=== PATIENT | female | born 1940 | race Caucasian/White ===

== ENCOUNTER 2020-10-01 14:19 | Emergency (ER) | payer OTHER, SELFPAY ==
--- NOTE | 2020-10-01 14:31 | DI.RAD.S_ITS ---
PROCEDURE: XR KNEE RT 3V INDICATIONS: fall with knee pain TECHNIQUE: 3 views of the knee were acquired. COMPARISON: None. FINDINGS: Bones: No fractures or dislocations. No suspicious bony lesions. Soft tissues: No joint effusion. No suspicious soft tissue calcifications. Arterial calcifications. IMPRESSION: Peripheral vascular disease. No evidence acute bony abnormality of the right knee. If clinical suspicion and/or symptoms persist, further assessment with repeat plain films, or advanced imaging (e.g., CT, MRI, or bone scan) may be helpful for further assessment. Dictated by: Ricky Chavarria M.D. on 10/01/2020 at 15:03 Approved by: Ricky Chavarria M.D. on 10/01/2020 at 15:03
--- NOTE | 2020-10-01 14:31 | DI.RAD.S_ITS ---
PROCEDURE: XR HIP W PEL IF DONE RT 2V INDICATIONS: fall 2 weeks ago with hip pain TECHNIQUE: AP pelvis with lateral view(s) of the right hip(s). COMPARISON: None. FINDINGS: Bones: No fractures or dislocations. Pelvic ring appears intact. No suspicious bony lesions. Mild bilateral hip degenerative change. Soft tissues: The visualized bowel gas pattern is normal. No suspicious soft tissue calcifications. IMPRESSION: No evidence acute bony abnormality of the pelvis and right hip. If clinical suspicion and/or symptoms persist, further assessment with repeat plain films, or advanced imaging (e.g., CT, MRI, or bone scan) may be helpful for further assessment. Dictated by: Ricky Chavarria M.D. on 10/01/2020 at 15:02 Approved by: Ricky Chavarria M.D. on 10/01/2020 at 15:03
[2020-10-01 14:35] VITALS: BP 115/80; PULSE 91; RESP 18; TEMP 36.9; O2SAT 97; BMI 23.1
--- NOTE | 2020-10-01 15:05 | ED.LOWEXIN ---
HPI - Extremity Injury (Lower) General Chief Complaint: Extremity Injury, Lower Stated Complaint: fall 2 wks ago/trouble walking/not getting better Time Seen by Provider: 10/01/20 14:25 Mode of arrival: Ambulatory Limitations: no limitations History of Present Illness HPI Narrative: 80-year-old female smoker with history of hypertension presents with family in the chief complaint of ongoing right hip and knee pain since a ground level fall 2 weeks ago. She had been walking at a rest stop and had to ambulate much further than is normal for her, she tripped and fell onto her hip and has had pain ever since. She denies any head neck or back pain. She denies any loss of consciousness, vomiting or other. She states she has increased pain with ambulation range of motion and her pain persists MD complaint: hip injury and knee injury Onset (ago): week(s) Injury: Right: hip Type of Injury: blunt Place: street/outdoors Severity: moderate Relieving factors: rest Exacerbating factors: weight bearing and palpation Context: fall and direct blow Other symptoms: none Related Data Previous Rx's Medication Instructions Recorded hydrocodone-acetaminophen 1 tab PO Q4-6H PRN #20 tab 10/01/20 Review of Systems Constitutional Constitutional: Denies chills, Denies fatigue, Denies fever(s), Denies frequent falls, Denies lethargy and Denies weakness Eyes Eyes: Denies change in vision, Denies eye discharge, Denies irritation and Denies loss of vision ENT Ears, Nose, Mouth, and Throat: Denies change in voice, Denies dizziness, Denies neck pain, Denies sore throat and Denies throat swelling Cardiovascular Cardiovascular: Denies chest pain, Denies irregular heart rhythm, Denies lightheadedness, Denies palpitations, Denies dyspnea, Denies dyspnea on exertion and Denies orthopnea Respiratory Respiratory: Denies cough, Denies dyspnea, Denies dyspnea on exertion and Denies wheezing Gastrointestinal Gastrointestinal: Denies abdominal pain, Denies change in bowel habits, Denies diarrhea, Denies nausea and Denies vomiting Musculoskeletal Musculoskeletal: Reports arthralgias, Denies neck pain and Denies numbness Integumentary/Breasts Skin/Breast: Denies pruritus, Denies erythema, Denies rash and Denies wounds Neurologic Neurologic: Denies behavioral changes, Denies confusion, Denies dizziness, Denies frequent falls, Denies loss of vision, Denies numbness and Denies weakness Psychiatric Psychiatric: Denies anxiety, Denies behavioral changes, Denies confusion, Denies depression, Denies homicidal ideation and Denies suicidal ideation Endocrine Endocrine: Denies fatigue, Denies flushing and Denies palpitations Hematologic/Lymphatic Hematologic/Lymphatic: Denies easy bruising Allergic/Immunologic Allergic/Immunologic: Denies urticaria, Denies throat swelling and Denies wheezing Patient History Social History Smoking Status: Current every day smoker Smoking Status: Current every day smoker Substance Use Type: does not use Exam Narrative Exam Narrative: GEN: AOx3 and in mild distress, GCS 15 HEAD: No swelling, abrasions, contusions, depressed skull fractures EYES: Pupils are equal, round, and reactive to light and accommodation. Extraoccular muscles are intact bilaterally. There is no subconjunctival hemorrhage or exudate. CHEST: Lungs are clear to auscultation bilaterally and free of wheezes, rales, or rhonchi. Heart rate is regular rhythm, there are no murmurs, clicks, rubs, or gallops. There is no chest wall tenderness. ABD: Abdomen is soft and nontender. There is no guarding or rebound. Bowel sounds are normal in all 4 quadrants. There is no mass or organomegaly. EXT: Full painless ROM of all extremities with no loss of sensation or strength. SKIN: Warm, pink, and dry. No erythema or rash Initial Vital Signs Initial Vital Signs: Vital Signs Temperature 98.5 F 10/01/20 14:35 Pulse Rate 91 H 10/01/20 14:35 Respiratory Rate 18 10/01/20 14:35 Blood Pressure 115/80 10/01/20 14:35 Pulse Oximetry 97 10/01/20 14:35 Course Orders Ordered: ED Orders 10/01/20 14:31 XR hip w pel if done RT 2V Stat XR knee RT 3V Stat 10/01/20 15:17 CT pelvis wo con Stat Consultations Consultation #1: Discussed with on-call Orthopedics ([place]), recommends weight-bearing as tolerated, pain control and follow-up with PCP Vital Signs Vital signs: Vital Signs - 8 hr 10/01/20 14:35 Temperature 98.5 F Pulse Rate 91 H Respiratory Rate 18 Blood Pressure 115/80 Pulse Oximetry 97 MDM - Extremity Injury (Lower) Imaging Data Xray Hip: Radiologist's Impression: [address] [id number] ReportSigned Patient: Aram Condon BMR#: [id number]: [id number]:[id number]/Sex: 80 / FDate of Service: 10/01/20Lo: EDAccession Number: [id number] Procedure: XR hip w pel if done RT 2V Ordering Provider: Jaylen Jimenez D.O. PROCEDURE: XR HIP W PEL IF DONE RT 2V INDICATIONS: fall 2 weeks ago with hip pain TECHNIQUE: AP pelvis with lateral view(s) of the right hip(s). COMPARISON: None. FINDINGS: Bones: No fractures or dislocations. Pelvic ring appears intact. No suspicious bony lesions. Mild bilateral hip degenerative change. Soft tissues: The visualized bowel gas pattern is normal. No suspicious soft tissue calcifications. IMPRESSION: No evidence acute bony abnormality of the pelvis and right hip. If clinical suspicion and/or symptoms persist, further assessment with repeat plain films, or advanced imaging (e.g., CT, MRI, or bone scan) may be helpful for further assessment. Dictated by: Ricky Chavarria M.D. on 10/01/2020 at 15:02 Approved by: Ricky Chavarria M.D. on 10/01/2020 at 15:03 CT scan - abdomen/pelvis: Radiologist's Impression: [address] [id number] Scan ReportSigned Patient: Aram Condon BMR#: [id number]: [id number]:[id number]/Sex: 80 / FDate of Service: 10/01/20Loc: EDAccession Number: [id number] Procedure: CT pelvis wo con Ordering Provider: Jaylen Jimenez D.O. PROCEDURE: CT PEL WO CON INDICATIONS: fall with R hip pain TECHNIQUE: Noncontrast 3 mm axial sections acquired through the bony pelvis, with coronal and sagittal reformatting. COMPARISON: [facility], XR HIP W PEL IF DONE RT 2V, 10/01/2020, 14:39. FINDINGS: Image quality: Excellent. Bones: There is a nondisplaced fracture involving the right greater trochanter. Lutsjwqc-hw-iolfin degenerative disc disease at L4-L5. There is grade 1 anterolisthesis of L4-L5. Unilateral pars defect at L4 on the right. Severe facet arthropathy at L4-L5 bilaterally. Soft tissues: Mild soft tissue contusion in bile ducts bilaterally. Moderate atherosclerotic calcifications. IMPRESSION: 1. Nondisplaced right greater trochanteric fracture. Dictated by: Deep Díaz M.D. on 10/01/2020 at 15:43 Approved by: Deep Díaz M.D. on 10/01/2020 at 15:52 Discharge Plan Departure Patient Disposition: Home Clinical Impression: Closed fracture of greater trochanter of femur Qualifiers: Encounter type: initial encounter Fracture alignment: nondisplaced Laterality: right Qualified Code(s): S72.114A - Nondisplaced fracture of greater trochanter of right femur, initial encounter for closed fracture Instructions: DI for Fracture Activity Restrictions/Additional Instructions: *You have been diagnosed with [nondisplaced right greater trochanteric fracture, this is a nonsurgical injury and you can weight bear as tolerated.] *What to do: *Please continue to take your regular medications as directed. [ x] New medication prescriptions sent to your pharmacy: [ [facility] in [place]] [ ] New medication written as a paper prescription [ ] No new medications given *Please follow up with your primary care provider in 2-3 days, call for an appointment. Let them know you were seen in the Emergency Department and that we ask that you be seen in follow up. We will electronically transmit a record of today's note if your PCP is in our system *If you do not have a primary care provider please contact the [facility] Resource line at [phone]. They will ask some questions about your medical history and help get you set up with a doctor in the community. *Return to Emergency Department if you should have any new, worsening or concerning symptoms, such as [fever greater than 101 F, shaking chills, worsening pain, persistent vomiting or other bothersome symptoms] Prescriptions: New hydrocodone-acetaminophen 5-325 mg tablet 1 tab PO Q4-6H PRN (Reason: pain) Qty: 20 RF: 0 Referrals: [facility] [Outside] Raul Chavis MD [Physician] -
--- NOTE | 2020-10-01 15:17 | DI.CT.S_ITS ---
PROCEDURE: CT PEL WO CON INDICATIONS: fall with R hip pain TECHNIQUE: Noncontrast 3 mm axial sections acquired through the bony pelvis, with coronal and sagittal reformatting. COMPARISON: [facility], CR, XR HIP W PEL IF DONE RT 2V, 10/01/2020, 14:39. FINDINGS: Image quality: Excellent. Bones: There is a nondisplaced fracture involving the right greater trochanter. Pefhtsto-ux-gkmhbk degenerative disc disease at L4-L5. There is grade 1 anterolisthesis of L4-L5. Unilateral pars defect at L4 on the right. Severe facet arthropathy at L4-L5 bilaterally. Soft tissues: Mild soft tissue contusion in bile ducts bilaterally. Moderate atherosclerotic calcifications. IMPRESSION: 1. Nondisplaced right greater trochanteric fracture. Dictated by: Deep Díaz M.D. on 10/01/2020 at 15:43 Approved by: Deep Díaz M.D. on 10/01/2020 at 15:52
[2020-10-01 16:18] VITALS: BP 119/61; PULSE 75; RESP 19; O2SAT 98
== END 2020-10-01 16:19 | disposition home or self-care (01) ==
PROVIDERS: Emergency Provider Emergency Medicine
DX: S72.114A Nondisplaced fracture of greater trochanter of right femur, initial encounter for closed fracture (principal); M25.561 Pain in right knee; W19.XXXA Unspecified fall, initial encounter
CPT/HCPCS: 72192; 73502; 73562; 99284

== ENCOUNTER 2021-10-17 12:16 | Inpatient (IN) | payer MEDICARE, MEDICAID, SELFPAY ==
[2021-10-17] VITALS (53 sets, daily range): BP systolic 69–144; BP diastolic 47–82; PULSE 62–171; RESP 17–60; TEMP 36.1; O2SAT 94–100; BMI 24.7
--- NOTE | 2021-10-17 12:46 | DI.RAD.S_ITS ---
PROCEDURE: XR CHEST 1V INDICATIONS: altered mental status TECHNIQUE: One view of the chest was acquired. COMPARISON: None. FINDINGS: Examination is somewhat limited given oblique and lordotic positioning of the patient. Surgical changes and devices: None. Overlying EKG wires. Lungs and pleura: Lungs are clear. No pleural effusions or pneumothorax. Mediastinum: Mediastinal contours appear normal. Heart size is normal. Vascular calcifications within the aorta. Bones and chest wall: No suspicious bony lesions. Degenerative changes without acute osseous abnormality. Likely vascular calcifications noted within the right axilla. IMPRESSION: No evidence of an acute cardiopulmonary abnormality. Dictated by: Uri Donovan D.O. on 10/17/2021 at 12:45 Approved by: Uri Donovan D.O. on 10/17/2021 at 12:47
[2021-10-17 13:29] LABS: Add Manual Diff / Slide Review NO; Basophils Absolute Auto 0 /uL (0-100); Basophils Percent Auto 0.2 % (0-2); Eosinophils Absolute Auto 0 /uL (0-450); Hematocrit 43.6 % (36-46); Lymphocytes Absolute Auto 600 /uL (1100-4500); Mean Corpuscular HGB Conc 29.9 % (30-36); Mean Corpuscular Hemoglobin 30.4 PG (26-34); Mean Corpuscular Volume 101.7 fL (80-100); Monocytes Absolute Auto 800 /uL (0-900); Neutrophils Absolute Auto 19600 /uL (1500-7000); Neutrophils Percent Auto 92.8 % (50-75); Platelet Count 305 X10^3/uL (150-400); Red Blood Cell Count 4.29 X10^6/uL (4.0-5.2); Red Cell Distribution Width 17.4 % (11.6-14.8); White Blood Cell Count 21.1 X10^3/uL (4.5-11.0)
[2021-10-17 13:30] LABS: Ammonia (NH3) < 9 umol/L (9-30)
[2021-10-17 14:01] LABS: Alanine Aminotransferase 15 IU/L (<35); Albumin 3.4 g/dL (3.5-5.0); Alkaline Phosphatase 175 U/L (38-126); Aspartate Aminotransferase 18 IU/L (14-36); Bilirubin Total 0.5 mg/dL (0.2-1.3); Blood Urea Nitrogen 27 mg/dL (7-17); Calcium 9.5 mg/dL (8.4-10.2); Carbon Dioxide 11 mmol/L (22-32); Chloride 86 mmol/L (98-107); Estimated Glomerular Filt Rate 32 mL/min (>60); Globulin 3.3 g/dL (1.7-4.1); HEMOLYSIS < 15 (0-50); Potassium 3.3 mmol/L (3.4-5.1); Sodium 134 mmol/L (137-145); Total Protein 6.7 g/dL (6.3-8.2)
[2021-10-17 14:03] LABS: Glucose 1064 mg/dL (80-110)
[2021-10-17] MEDS: ONDANSETRON 4 MG/2 ML INJ IV (14:46)
[2021-10-17] MEDS: INSULIN DRIP PREMIX 100 UNIT/100 ML PLAST..BAG 6 UNIT IV (14:53)
[2021-10-17] MEDS: PANTOPRAZOLE 40 MG VIAL 80 MG IV (14:57)
[2021-10-17] MEDS: PANTOPRAZOLE 40 MG VIAL IV (15:04)
[2021-10-17] MEDS: POTASSIUM CHLORIDE IN WATER 10 MEQ/100 ML PIGGYBACK 100 MEQ IV ×4 (15:36→19:31)
--- NOTE | 2021-10-17 15:49 | ED.NAVMDI ---
HPI - Nausea/Vomiting/Diarrhea General Chief complaint: Nausea/Vomiting/Diarrhea Stated complaint: weak Dizzy Time Seen by Provider: 10/17/21 14:03 Source: EMS Mode of arrival: EMS Related Data Previous Rx's Medication Instructions Recorded hydrocodone 5 mg-acetaminophen 325 1 tab PO Q4-6H PRN pain #20 tabs 10/01/20 mg tablet Patient History Social History Smoking Status: Current every day smoker Smoking Status: Current every day smoker Substance Use Type: does not use Exam Initial Vital Signs Initial Vital Signs: Vital Signs Temperature 96.9 F L 10/17/21 12:31 Pulse Rate 117 H 10/17/21 12:31 Respiratory Rate 19 10/17/21 12:31 Blood Pressure 98/47 L 10/17/21 12:31 Pulse Oximetry 99 10/17/21 12:31 Oxygen Delivery Method 10/17/21 12:31 Course Orders Ordered: ED Orders 10/17/21 12:45 COVID19 - ADMIT (COPYWRITING INTERN swab/PCR) Stat 10/17/21 12:46 XR chest 1V Stat Urine Drug Screen, Rapid Stat EKG-12 Lead Stat 10/17/21 13:10 Ammonia (NH3) Stat Complete Blood Count AUTO DIFF Stat Comprehensive Metabolic Panel Stat Ketones (Beta-Hydroxybutyrate) Stat 10/17/21 15:02 ABG [Arterial Blood Gas] Stat 10/17/21 15:16 Gastric Occult with pH Stat INSULIN DRIP PREMIX (Myxredlin Drip Premix) 100 unit in 100 mls @ 6 mls/hr IV TITRATE KALEB; Protocol Last Admin: 10/17/21 14:53 Dose: 6 mls/hr, 6 mls/hr Documented By: JOSE Co-signed By: [facility] POTASSIUM CHLORIDE IN WATER (Potassium Cl 10 Meq/100 Ml Kamala) 10 meq in 100 mls @ 100 mls/hr IV Q1H KALEB Stop: 10/17/21 19:14 Last Admin: 10/17/21 15:36 Dose: 100 mls/hr Documented By: JOSE Discontinued Medications Sodium Chloride (Normal Saline 0.9%) 500 mls @ 1,000 mls/hr IV BOLUS ONE Stop: 10/17/21 15:33 Ondansetron HCl (Ondansetron 4 Mg/2 Ml Inj) 4 mg IV NOW ONE Stop: 10/17/21 14:30 Last Admin: 10/17/21 14:46 Dose: 4 mg Documented By: JOSE Pantoprazole Sodium (Pantoprazole 40 Mg Vial) 80 mg IV NOW ONE Stop: 10/17/21 14:28 Last Admin: 10/17/21 14:57 Dose: 40 mg Documented By: JOSE Pantoprazole Sodium (Pantoprazole 40 Mg Vial) 40 mg IV NOW ONE Stop: 10/17/21 15:01 Last Admin: 10/17/21 15:04 Dose: 40 mg Documented By: JOSE Sodium Chloride (Sodium Chloride 0.9% 100 Ml) 1,000 ml IV NOW ONE Stop: 10/17/21 14:28 Vital Signs Vital signs: Vital Signs - 8 hr 10/17/21 12:31 10/17/21 12:39 Temperature 96.9 F L 96.9 F L Pulse Rate 117 H 146 H Respiratory Rate 19 18 Blood Pressure 98/47 L 123/55 L Pulse Oximetry 99 99 Oxygen Delivery Method Room Air MDM - Nausea/Vomiting/Diarrhea Lab Data Result diagrams: 10/17/21 13:10 10/17/21 13:10 Labs: Lab Results 10/17/21 10/17/21 10/17/21 Range/Units 13:10 13:10 13:10 WBC 21.1 H (4.5-11.0) X10^3/uL RBC 4.29 (4.0-5.2) X10^6/uL Hgb 13.0 (12.0-16.0) g/dL Hct 43.6 (36-46) % MCV 101.7 H (80-100) fL MCH 30.4 (26-34) PG MCHC 29.9 L (30-36) % RDW 17.4 H (11.6-14.8) % Plt Count 305 (150-400) X10^3/uL Neut % (Auto) 92.8 H (50-75) % Lymph % (Auto) 3.0 L (25-40) % [place] % (Auto) 4.0 (3-14) % Eos % (Auto) 0.0 L (2-4) % Baso % (Auto) 0.2 (0-2) % Neut # (Auto) 58742 H (5704-4607) /uL Lymph # (Auto) 600 L (4072-7467) /uL [place] # (Auto) 800 (0-900) /uL Eos # (Auto) 0 (0-450) /uL Baso # (Auto) 0 (0-100) /uL Sodium 134 L (137-145) mmol/L Potassium 3.3 L (3.4-5.1) mmol/L Chloride 86 L (98-107) mmol/L Carbon Dioxide 11 L (22-32) mmol/L BUN 27 H (7-17) mg/dL Creatinine 1.59 H (0.52-1.04) mg/dL Estimated GFR 32 L (>60) mL/min BUN/Creatinine Ratio 17.0 (6-22) Glucose 1064 H* (80-110) mg/dL Calcium 9.5 (8.4-10.2) mg/dL Total Bilirubin 0.5 (0.2-1.3) mg/dL AST 18 (14-36) IU/L ALT 15 (<35) IU/L Alkaline Phosphatase 175 H (38-126) U/L Ammonia < 9 L (9-30) umol/L Total Protein 6.7 (6.3-8.2) g/dL Albumin 3.4 L (3.5-5.0) g/dL Globulin 3.3 (1.7-4.1) g/dL Albumin/Globulin Ratio 1.0 (1.0-2.8) Discharge Plan Departure Prescriptions: No Action hydrocodone-acetaminophen 5-325 mg tablet 1 tab PO Q4-6H PRN (Reason: pain) Qty: 20 0RF
--- NOTE | 2021-10-17 15:50 | PM.CN ---
History of Present Illness Consult details Date Patient Seen: 10/17/21 Chief complaint: weak Dizzy Reason for consult: Possible admission Requesting provider: Russel Jenkins Narrative: 81-year-old female with underlying diabetes mellitus type 2, controlled with oral medications, fibromyalgia, COPD, hypertension chronic back pain, remote cerebrovascular accident x2, and ?chronic digestive issues ?who was brought into the emergency department with abdominal pain, nausea, and vomiting. All history is obtained from the patient's daughter and emergency room staff as the patient is unable to provide history. Per daughter, patient was in her usual state of health until approximately 2 weeks ago. She developed abdominal pain and was complaining quite regularly of her abdomen hurting. She had decreased appetite. Her daughter notes that she was drinking fluids and urinating regularly. Approximately 3 days ago she began complaining of nausea and worsening pain with any oral intake. She complained of ?feeling sick?. Her daughter reports that she was ?pounding tea, water, and soda ?. She states she was urinating very frequently. She states that initially the patient's emesis was clear. However, this morning it became dark. Patient has had chronic diarrhea for the last 30 years and frequently takes Imodium. Daughter notes that she did have a solid bowel movement yesterday. Daughter states her mother does take a daily baby aspirin, but no other NSAIDs. She does not use alcohol. She is a smoker. With regard to her diabetes, patient been on metformin and glipizide and monitors her diet. She has never been on insulin therapy. Daughter reports no known history of any cardiac disease or arrhythmias. Meds Home Medications and Allergies Home Medications Medication Instructions Recorded Confirmed Type hydrocodone 5 mg-acetaminophen 325 1 tab PO Q4-6H PRN pain #20 tabs 10/01/20 Rx mg tablet Review of Systems Review of Systems Narrative: Patient is unable to answer questions to provide review of systems at this time Exam Vital Signs (past 8 hours): - 10/17/21 12:31 10/17/21 12:39 Temperature 96.9 F L 96.9 F L Pulse Rate 117 H 146 H Respiratory Rate 19 18 Blood Pressure 98/47 L 123/55 L Pulse Oximetry 99 99 Oxygen Delivery Method Room Air Oxygen Delivery Method Room Air Narrative Exam Narrative: GEN: Ill-appearing elderly female, active emesis of emmanuel blood, Alert and oriented x1 HEENT: Normocephalic, face symmetric, pupils equal round reactive to light, extraocular movements intact, sclerae anicteric, conjunctiva clear, nares patent, oropharynx reveals an intact soft and hard palate some bright red blood mixed with older appearing blood/clot coding her tongue and mucous membranes NECK: Supple, no lymphadenopathy, thyroid without enlargement or nodularity, carotids no bruits CHEST: Tachypneic, Respiratory excursions symmetric, course but clear to auscultation bilaterally CV: Tachycardic, irregularly irregular,, no murmurs, rubs, gallops, PMI nondisplaced ABD: Soft, nontender, nondistended, bowel sounds hypoactive, no organomegaly or masses appreciated EXTR: Warm, well perfused, no clubbing/cyanosis, 1+ bilateral lower extremity pitting edema SKIN: Warm and dry, without rash, pale NEURO: Alert, moving all extremities, oriented to self PSYCH: Unable to assess, patient is actively vomiting Objective Labs Result Diagrams: 10/17/21 13:10 10/17/21 13:10 Labs: Laboratory Results - last 24 hr 10/17/21 10/17/21 10/17/21 13:10 13:10 13:10 WBC 21.1 H RBC 4.29 Hgb 13.0 Hct 43.6 MCV 101.7 H MCH 30.4 MCHC 29.9 L RDW 17.4 H Plt Count 305 Neut % (Auto) 92.8 H Lymph % (Auto) 3.0 L [place] % (Auto) 4.0 Eos % (Auto) 0.0 L Baso % (Auto) 0.2 Neut # (Auto) 63925 H Lymph # (Auto) 600 L [place] # (Auto) 800 Eos # (Auto) 0 Baso # (Auto) 0 Sodium 134 L Potassium 3.3 L Chloride 86 L Carbon Dioxide 11 L BUN 27 H Creatinine 1.59 H Estimated GFR 32 L BUN/Creatinine Ratio 17.0 Glucose 1064 H* Calcium 9.5 Total Bilirubin 0.5 AST 18 ALT 15 Alkaline Phosphatase 175 H Ammonia < 9 L Total Protein 6.7 Albumin 3.4 L Globulin 3.3 Albumin/Globulin Ratio 1.0 PFSH Comment: Past medical history: Remote stroke x2 COPD new line diabetes mellitus type 2 Fibromyalgia Hypertension Chronic back pain Active tobacco use Chronic ?digestive issues ? Tobacco & Substance Use Smoking Status: Current every day smoker Additional Social History additional social history: Patient lives with her daughter. She is an active smoker. She presently smokes 1 pack per day but was a 2-3 pack per day smoker for 60 years. No alcohol use. Assessment & Plan Assessment & Plan narrative: 1. DKA versus hyperosmolar nonketotic state Patient who is reportedly on glipizide and metformin alone at baseline presents with blood sugar greater than 1000, low bicarb, and concern for DKA. She has received 1 L of IV fluids in the emergency department. And additional 1 L has been ordered. She was initiated on insulin pump at 6 units/hour by the emergency department physician. Will send an ABG and serum ketone level. Will repeat blood sugar in the next hour to assess response. 2. Upper GI bleed Patient with emmanuel hematemesis which started this morning. She has been having abdominal pain for 2 weeks. No known history of peptic ulcer disease, but she does take a daily baby aspirin and is a smoker. Will need upper endoscopy to further evaluate. She has been placed on a Protonix drip. Will need serial hemoglobin and hematocrits. I suspect she is hemoconcentrated presently due to her metabolic derangements. 3. Presumed AFib with RVR In the emergency department patient has significant tachycardia with heart rates in the 150-160 range. Per her daughter she has no history of rapid AFib. Is difficult to assess her rhythm in light of her tachycardia. Will need rate-controlling medication. 4. Acute metabolic encephalopathy Likely secondary to her severe hyperglycemia, and presumed GI bleed. 5. Leukocytosis Suspect this is reactive in nature. No evidence for infection. 6. Hypokalemia Will order potassium rider, her electrolyte derangements will likely worsen with the addition of the insulin. 7. CONRAD Mild CONRAD. Suspect this will resolve with correction of her blood glucose and IV fluids. 8. Hypertension Patient typically is on lisinopril and atenolol at baseline. She reportedly is also on amlodipine. Presently she is mildly hypotensive in the 90s. Antihypertensive therapy has been held. 9. COPD No evidence of exacerbation 10. Chronic active tobacco abuse Patient presents smokes 1 pack per day. Code status DNR DNI per my conversation with patient's daughter Prophylaxis Chemical prophylaxis contraindicated in the setting of GI bleed Disposition I did have a long conversation with the patient's daughter in regards to the patient's present status. She does require admission to ICU. I have also advised that we do not have in-house at senior center director but that they are available by telemedicine. Furthermore, we do not have in-house Gastroenterology. General surgery could be consulted for endoscopy. At this time, patient's daughter does request transfer to a higher level of care where patient can be managed by an senior center director, chicken boner, and potentially engineer technician. I have communicated this to the Emergency Department physician. Efforts will be made to transfer her. In the interim, further stabilization efforts will be pursued. Time Spent With Patient Critical Care time: I spent a total of [] minutes of critical care time on this patient's care today; this time is exclusive of procedural time.
[2021-10-17 16:04] LABS: pH ABG 7.32 (7.35-7.45)
[2021-10-17 16:07] LABS: Fractionated Inspired Oxygen 21; HCO3 ABG 7 mmol/L (22-26); Oxygen Saturation ABG 98 % (95-100); PCO2 ABG 13.4 mmHg (35-45); PO2 ABG 116 mmHg (80-100); TCO2 ABG 7 mmol/L (21-31)
--- NOTE | 2021-10-17 16:20 | ED_ITS ---
HPI - Nausea/Vomiting/Diarrhea <Jaylen Jimenez DO - Last Filed: 10/18/21 06:00> General Chief complaint: Nausea/Vomiting/Diarrhea Stated complaint: weak Dizzy Time Seen by Provider: 10/17/21 14:03 Related Data Previous Rx's Medication Instructions Recorded hydrocodone 5 mg-acetaminophen 325 1 tab PO Q4-6H PRN pain #20 tabs 10/01/ mg tablet Allergies Allergy/AdvReac Type Severity Reaction Status Date / Time No Known Drug Allergies Allergy Verified 10/18/21 00:41 <Russel Jenkins MD - Last Filed: 10/17/21 21:34> General Source: EMS Mode of arrival: EMS History of Present Illness HPI Narrative: This patient is brought in by family were not present during the time I tried to interview the patient. I am told that she has had 4 days of emesis and decreased activity for about 7 days. She lives with daughter. The patient also reports abdominal pain for about 2 weeks. The patient's ability to provide a detailed history is limited given how ill she feels now she is perpetually vomiting. <Russel Jenkins MD - Last Filed: 10/17/21 21:34> Review of Systems Narrative: Review of systems is limited because of the patient's level of illness but negative other than as noted above. Patient History <Jaylen Jimenez DO - Last Filed: 10/18/21 06:00> Social History Smoking Status: Current every day smoker additional social history: Patient lives with her daughter. She is an active smoker. She presently smokes 1 pack per day but was a 2-3 pack per day smoker for 60 years. No alcohol use. <Russel Jenkins MD - Last Filed: 10/17/21 21:34> Smoking Status: Current every day smoker Substance Use Type: does not use Exam <Jaylen Jimenez DO - Last Filed: 10/18/21 06:00> Initial Vital Signs Initial Vital Signs: Vital Signs Temperature 96.9 F L 10/17/21 12:31 Pulse Rate 117 H 10/17/21 12:31 Respiratory Rate 19 10/17/21 12:31 Blood Pressure 98/47 L 10/17/21 12:31 Pulse Oximetry 99 10/17/21 12:31 Oxygen Delivery Method 10/17/21 12:31 <Russel Jenkins MD - Last Filed: 10/17/21 21:34> Narrative Exam Narrative: GENERAL: Alert, looks pale, looks uncomfortable having her head over the bed refill vomiting frequently into an emesis bag. Emesis is brown in color. HEAD: Atraumatic. Normocephalic. EYES: Sclera are clear without icterus. Extraocular movements are full. ENT: No rhinorrhea. Oropharynx is moist. Mouth exam is benign. NECK: Supple. Full range of motion. CARDIOVASCULAR: Normal rate and rhythm without murmur gallop or rub. RESPIRATORY: Clear to auscultation. Breath sounds equal bilaterally. No wheezes, rales, or rhonchi. GASTROINTESTINAL: Abdomen soft, mild diffuse tenderness. No guarding. EXTREMITIES: No edema, full range of motion. No obvious trauma. BACK: Normal inspection, no CVA tenderness. NEURO: Nonfocal examination, normal speech, normal gait. SKIN: No rash or erythema of visible areas PSYCH: Normally oriented. Normal range of affect. Appropriate behavior Rectal examination: Firm dark stool which is guaiac negative. Initial Vital Signs Initial Vital Signs: Vital Signs Temperature 96.9 F L 10/17/21 12:31 Pulse Rate 117 H 10/17/21 12:31 Respiratory Rate 19 10/17/21 12:31 Blood Pressure 98/47 L 10/17/21 12:31 Pulse Oximetry 99 10/17/21 12:31 Oxygen Delivery Method 10/17/21 12:31 Course <Jaylen Jimenez DO - Last Filed: 10/18/21 06:00> Orders Ordered: ED Orders 10/17/21 21:05 Blood Culture Stat Glucose Stat Acetaminophen (Acetaminophen 325 Mg Tablet) 650 mg PO Q6HR PRN PRN Reason: Fever/Mild Pain (1-3) Artificial Tears (Polyvinyl Alcohol Drops) 1 drops EYE-BOTH Q2HR PRN PRN Reason: Dry Eye(s) Dextrose (Dextrose 50 % In Water 25 Gm/50 Ml Syringe) 25 gm IV PRN PRN PRN Reason: Hypoglycemia Sodium Chloride (Normal Saline 0.9%) 1,000 mls @ 150 mls/hr IV CONT KALEB Last Admin: 10/18/21 05:35 Dose: 150 mls/hr Documented By: ISRAEL Lorazepam (Lorazepam 2 Mg/Ml Inj) 1 mg IV Q1HR PRN PRN Reason: Agitation/Anxiety Morphine Sulfate (Morphine 2 Mg/Ml Inj) 4 mg IV Q30MIN PRN PRN Reason: Pain/Dyspnea Naloxone HCl (Naloxone 0.4 Mg/Ml Vial) 0.2 mg IV Q2MIN PRN PRN Reason: Opiate Reversal Ondansetron HCl (Ondansetron 4 Mg/2 Ml Inj) 4 mg IV Q8HR PRN PRN Reason: Nausea And Vomiting Scopolamine (Scopolamine 1 Patch) 1 patch TOP Q72H PRN PRN Reason: Secretions Discontinued Medications Diltiazem HCl (Diltiazem 5 Mg/Ml Sdv) 10 mg IV NOW ONE Stop: 10/17/21 16:49 Last Admin: 10/17/21 17:04 Dose: 10 mg Documented By: COREEN INSULIN DRIP PREMIX (Myxredlin Drip Premix) 100 unit in 100 mls @ 6 mls/hr IV TITRATE KALEB; Protocol Last Titration: 10/17/21 20:29 Dose: 2 mls/hr, 2 mls/hr Documented By: ALLEGRA Co-signed By: SHREYA Titration: 10/17/21 17:32 Dose: 4 mls/hr, 4 mls/hr Documented By: JOSE Co-signed By: COREEN Admin: 10/17/21 14:53 Dose: 6 mls/hr, 6 mls/hr Documented By: JOSE Co-signed By: [facility] Sodium Chloride (Normal Saline 0.9%) 500 mls @ 1,000 mls/hr IV BOLUS ONE Stop: 10/17/21 15:33 Last Admin: 10/17/21 17:15 Dose: Not Given Documented By: COREEN POTASSIUM CHLORIDE IN WATER (Potassium Cl 10 Meq/100 Ml Kamala) 10 meq in 100 mls @ 100 mls/hr IV Q1H KALEB Stop: 10/17/21 19:14 Last Infusion: 10/17/21 20:35 Dose: 0 mls/hr Documented By: Admin: 10/17/21 19:31 Dose: 100 mls/hr Documented By: Infusion: 10/17/21 19:26 Dose: 0 mls/hr Documented By: Admin: 10/17/21 18:03 Dose: 100 mls/hr Documented By: Infusion: 10/17/21 18:02 Dose: 0 mls/hr Documented By: Admin: 10/17/21 16:56 Dose: 100 mls/hr Documented By: Infusion: 10/17/21 16:36 Dose: 100 mls/hr Documented By: Admin: 10/17/21 15:36 Dose: 100 mls/hr Documented By: JOSE Piperacillin Sod/Tazobactam (Sod 4.5 gm/ Sodium Chloride) 100 mls @ 200 mls/hr IV NOW ONE Stop: 10/17/21 20:22 Last Infusion: 10/17/21 22:38 Dose: 0 mls/hr Documented By: Admin: 10/17/21 22:02 Dose: 200 mls/hr Documented By: ALLEGRA Lactated Ringer's (Lactated Ringers) 1,000 mls @ 1,000 mls/hr IV BOLUS ONE Stop: 10/17/21 21:31 Last Infusion: 10/17/21 22:09 Dose: 0 mls/hr Documented By: Admin: 10/17/21 20:51 Dose: 1,000 mls/hr Documented By: ALLEGRA Lactated Ringer's (Lactated Ringers) 906 mls @ 1,000 mls/hr IV BOLUS ONE Stop: 10/17/21 23:23 Last Infusion: 10/18/21 01:09 Dose: 0 mls/hr Documented By: Admin: 10/17/21 22:30 Dose: 1,000 mls/hr Documented By: ALLEGRA Insulin Human Lispro (Insulin Lispro 100 Unit/Ml 3ml Vial) [facility]; Protocol Metoclopramide HCl (Metoclopramide 10 Mg/2 Ml Inj) 10 mg IV NOW ONE Stop: 10/17/21 17:14 Last Admin: 10/17/21 17:26 Dose: 10 mg Documented By: JOSE Ondansetron HCl (Ondansetron 4 Mg/2 Ml Inj) 4 mg IV NOW ONE Stop: 10/17/21 14:30 Last Admin: 10/17/21 14:46 Dose: 4 mg Documented By: JOSE Pantoprazole Sodium (Pantoprazole 40 Mg Vial) 80 mg IV NOW ONE Stop: 10/17/21 14:28 Last Admin: 10/17/21 14:57 Dose: 40 mg Documented By: JOSE Pantoprazole Sodium (Pantoprazole 40 Mg Vial) 40 mg IV NOW ONE Stop: 10/17/21 15:01 Last Admin: 10/17/21 15:04 Dose: 40 mg Documented By: JOSE Sodium Chloride (Sodium Chloride 0.9% 100 Ml) 1,000 ml IV NOW ONE Stop: 10/17/21 14:28 Last Admin: 10/17/21 18:04 Dose: 1,000 ml Documented By: JOSE Sodium Chloride (Sodium Chloride 0.9% 100 Ml) 1,000 ml IV NOW ONE Stop: 10/17/21 16:51 Last Admin: 10/17/21 17:14 Dose: 1,000 ml Documented By: COREEN Vital Signs Vital signs: Vital Signs - 8 hr 10/17/21 22:00 10/17/21 22:00 10/17/21 22:05 Pulse Rate 97 H 105 H Respiratory Rate 37 H 48 H Blood Pressure 126/58 L Pulse Oximetry 96 95 10/17/21 22:05 10/17/21 22:30 10/17/21 23:00 Pulse Rate 89 Respiratory Rate 27 H Blood Pressure 119/58 L 121/59 L Pulse Oximetry 94 10/17/21 23:00 Pulse Rate 91 H Respiratory Rate 25 H Blood Pressure Pulse Oximetry 95 <Russel Jenkins MD - Last Filed: 10/17/21 21:34> Course Course Narrative: Patient was found to be in rapid atrial fibrillation. And markedly elevated glucose. She had ketones as well as some metabolic acidosis. We initiated IV hydration with 2 L of normal saline. She received Reglan and Zofran as an antiemetic. We also initiated DKA protocol. Symptoms began to improve to some degree. I planned on admitting the patient here but Dr. Blanc felt that placement elsewhere might be most appropriate given the need for endoscopy. Orders Ordered: ED Orders 10/17/21 21:05 Blood Culture Stat Glucose Stat Acetaminophen (Acetaminophen 325 Mg Tablet) 650 mg PO Q6HR PRN PRN Reason: Fever/Mild Pain (1-3) Artificial Tears (Polyvinyl Alcohol Drops) 1 drops EYE-BOTH Q2HR PRN PRN Reason: Dry Eye(s) Dextrose (Dextrose 50 % In Water 25 Gm/50 Ml Syringe) 25 gm IV PRN PRN PRN Reason: Hypoglycemia Sodium Chloride (Normal Saline 0.9%) 1,000 mls @ 150 mls/hr IV CONT KALEB Last Admin: 10/18/21 05:35 Dose: 150 mls/hr Documented By: ISRAEL Lorazepam (Lorazepam 2 Mg/Ml Inj) 1 mg IV Q1HR PRN PRN Reason: Agitation/Anxiety Morphine Sulfate (Morphine 2 Mg/Ml Inj) 4 mg IV Q30MIN PRN PRN Reason: Pain/Dyspnea Naloxone HCl (Naloxone 0.4 Mg/Ml Vial) 0.2 mg IV Q2MIN PRN PRN Reason: Opiate Reversal Ondansetron HCl (Ondansetron 4 Mg/2 Ml Inj) 4 mg IV Q8HR PRN PRN Reason: Nausea And Vomiting Scopolamine (Scopolamine 1 Patch) 1 patch TOP Q72H PRN PRN Reason: Secretions Discontinued Medications Diltiazem HCl (Diltiazem 5 Mg/Ml Sdv) 10 mg IV NOW ONE Stop: 10/17/21 16:49 Last Admin: 10/17/21 17:04 Dose: 10 mg Documented By: COREEN INSULIN DRIP PREMIX (Myxredlin Drip Premix) 100 unit in 100 mls @ 6 mls/hr IV TITRATE KALEB; Protocol Last Titration: 10/17/21 20:29 Dose: 2 mls/hr, 2 mls/hr Documented By: ALLEGRA Co-signed By: SHREYA Titration: 10/17/21 17:32 Dose: 4 mls/hr, 4 mls/hr Documented By: JOSE Co-signed By: COREEN Admin: 10/17/21 14:53 Dose: 6 mls/hr, 6 mls/hr Documented By: JOSE Co-signed By: [facility] Sodium Chloride (Normal Saline 0.9%) 500 mls @ 1,000 mls/hr IV BOLUS ONE Stop: 10/17/21 15:33 Last Admin: 10/17/21 17:15 Dose: Not Given Documented By: COREEN POTASSIUM CHLORIDE IN WATER (Potassium Cl 10 Meq/100 Ml Kamala) 10 meq in 100 mls @ 100 mls/hr IV Q1H KALEB Stop: 10/17/21 19:14 Last Infusion: 10/17/21 20:35 Dose: 0 mls/hr Documented By: Admin: 10/17/21 19:31 Dose: 100 mls/hr Documented By: Infusion: 10/17/21 19:26 Dose: 0 mls/hr Documented By: Admin: 10/17/21 18:03 Dose: 100 mls/hr Documented By: Infusion: 10/17/21 18:02 Dose: 0 mls/hr Documented By: Admin: 10/17/21 16:56 Dose: 100 mls/hr Documented By: Infusion: 10/17/21 16:36 Dose: 100 mls/hr Documented By: Admin: 10/17/21 15:36 Dose: 100 mls/hr Documented By: JOSE Piperacillin Sod/Tazobactam (Sod 4.5 gm/ Sodium Chloride) 100 mls @ 200 mls/hr IV NOW ONE Stop: 10/17/21 20:22 Last Infusion: 10/17/21 22:38 Dose: 0 mls/hr Documented By: Admin: 10/17/21 22:02 Dose: 200 mls/hr Documented By: ALLEGRA Lactated Ringer's (Lactated Ringers) 1,000 mls @ 1,000 mls/hr IV BOLUS ONE Stop: 10/17/21 21:31 Last Infusion: 10/17/21 22:09 Dose: 0 mls/hr Documented By: Admin: 10/17/21 20:51 Dose: 1,000 mls/hr Documented By: ALLEGRA Lactated Ringer's (Lactated Ringers) 906 mls @ 1,000 mls/hr IV BOLUS ONE Stop: 10/17/21 23:23 Last Infusion: 10/18/21 01:09 Dose: 0 mls/hr Documented By: Admin: 10/17/21 22:30 Dose: 1,000 mls/hr Documented By: ALLEGRA Insulin Human Lispro (Insulin Lispro 100 Unit/Ml 3ml Vial) [facility]; Protocol Metoclopramide HCl (Metoclopramide 10 Mg/2 Ml Inj) 10 mg IV NOW ONE Stop: 10/17/21 17:14 Last Admin: 10/17/21 17:26 Dose: 10 mg Documented By: JOSE Ondansetron HCl (Ondansetron 4 Mg/2 Ml Inj) 4 mg IV NOW ONE Stop: 10/17/21 14:30 Last Admin: 10/17/21 14:46 Dose: 4 mg Documented By: JOSE Pantoprazole Sodium (Pantoprazole 40 Mg Vial) 80 mg IV NOW ONE Stop: 10/17/21 14:28 Last Admin: 10/17/21 14:57 Dose: 40 mg Documented By: JOSE Pantoprazole Sodium (Pantoprazole 40 Mg Vial) 40 mg IV NOW ONE Stop: 10/17/21 15:01 Last Admin: 10/17/21 15:04 Dose: 40 mg Documented By: JOSE Sodium Chloride (Sodium Chloride 0.9% 100 Ml) 1,000 ml IV NOW ONE Stop: 10/17/21 14:28 Last Admin: 10/17/21 18:04 Dose: 1,000 ml Documented By: JOSE Sodium Chloride (Sodium Chloride 0.9% 100 Ml) 1,000 ml IV NOW ONE Stop: 10/17/21 16:51 Last Admin: 10/17/21 17:14 Dose: 1,000 ml Documented By: COREEN Reevaluation(s) Reevaluation #1: No significant improvement on the 1st and 2nd re-evaluations. Consultations Consultation #1: Dr. Blanc kindly provides consultation formally. Vital Signs Vital signs: Vital Signs - 8 hr 10/17/21 22:00 10/17/21 22:00 10/17/21 22:05 Pulse Rate 97 H 105 H Respiratory Rate 37 H 48 H Blood Pressure 126/58 L Pulse Oximetry 96 95 10/17/21 22:05 10/17/21 22:30 10/17/21 23:00 Pulse Rate 89 Respiratory Rate 27 H Blood Pressure 119/58 L 121/59 L Pulse Oximetry 94 10/17/21 23:00 Pulse Rate 91 H Respiratory Rate 25 H Blood Pressure Pulse Oximetry 95 MDM - Nausea/Vomiting/Diarrhea <Jaylen Jimenez DO - Last Filed: 10/18/21 06:00> Lab Data Result diagrams: 10/17/21 19:22 10/17/21 21:05 Labs: Lab Results 10/17/21 10/17/21 10/17/21 Range/Units 13:10 13:10 13:10 WBC 21.1 H (4.5-11.0) X10^3/uL RBC 4.29 (4.0-5.2) X10^6/uL Hgb 13.0 (12.0-16.0) g/dL Hct 43.6 (36-46) % MCV 101.7 H (80-100) fL MCH 30.4 (26-34) PG MCHC 29.9 L (30-36) % RDW 17.4 H (11.6-14.8) % Plt Count 305 (150-400) X10^3/uL Neut % (Auto) 92.8 H (50-75) % Lymph % (Auto) 3.0 L (25-40) % Stephens % (Auto) 4.0 (3-14) % Eos % (Auto) 0.0 L (2-4) % Baso % (Auto) 0.2 (0-2) % Neut # (Auto) 46085 H (9483-6899) /uL Lymph # (Auto) 600 L (1436-0584) /uL Stephens # (Auto) 800 (0-900) /uL Eos # (Auto) 0 (0-450) /uL Baso # (Auto) 0 (0-100) /uL Total Counted Seg Neutrophils % (38-70) % Band Neutrophils % (3-7) % Lymphocytes % (Manual) (25-45) % Atypical Lymphs % ( - 0) % Monocytes % (Manual) (2-11) % Metamyelocytes % (-0) % Neutrophils # (Manual) (1512-0981) /uL RBC Morphology Anisocytosis ABG pH (7.35-7.45) ABG pCO2 (35-45) mmHg ABG pO2 (80-100) mmHg ABG HCO3 (22-26) mmol/L ABG Total CO2 (21-31) mmol/L ABG O2 Saturation (95-100) % ABG Base Excess (-2-2) mmol/L FiO2 Sodium 134 L (137-145) mmol/L Potassium 3.3 L (3.4-5.1) mmol/L Chloride 86 L (98-107) mmol/L Carbon Dioxide 11 L (22-32) mmol/L BUN 27 H (7-17) mg/dL Creatinine 1.59 H (0.52-1.04) mg/dL Estimated GFR 32 L (>60) mL/min BUN/Creatinine Ratio 17.0 (6-22) Glucose 1064 H* (80-110) mg/dL Lactate (0.7-2.1) mmol/L Calcium 9.5 (8.4-10.2) mg/dL Total Bilirubin 0.5 (0.2-1.3) mg/dL AST 18 (14-36) IU/L ALT 15 (<35) IU/L Alkaline Phosphatase 175 H (38-126) U/L Ammonia < 9 L (9-30) umol/L Total Creatine Kinase (30-135) U/L CK-MB (CK-2) CK-MB (CK-2) Rel Index Troponin I (0.01-0.034) ng/mL Total Protein 6.7 (6.3-8.2) g/dL Albumin 3.4 L (3.5-5.0) g/dL Globulin 3.3 (1.7-4.1) g/dL Albumin/Globulin Ratio 1.0 (1.0-2.8) Urine Color Urine Appearance Urine pH (4.5-8.0) Ur Specific [place] (1.000-1.035) Urine Protein (Negative) Urine Glucose (UA) (Negative) g/dL Urine Ketones (NEGATIVE) Urine Occult Blood (Negative) Urine Nitrate (Negative) Urine Bilirubin (NEGATIVE) Urine Urobilinogen (0.2) E.U./dL Ur Leukocyte Esterase (NEGATIVE) Urine RBC (0-5/HPF) Urine WBC (0-5/HPF) Ur Squamous Epith Cells (0-5/HPF) Amorphous Sediment Urine Bacteria (None) Ur Culture Indicated? U Opiates 300ng/mL cut (Negative) Ur Oxycodone Screen (Negative) Urine Methadone Screen (Negative) Ur Barbiturates Screen (Negative) U Tricyclic Antidepress (Negative) Ur Phencyclidine Scrn (Negative) Ur Amphetamines Screen (Negative) U Methamphetamines Scrn (Negative) Ur MDMA Scrn (Ecstasy) (Negative) U Benzodiazepines Scrn (Negative) Urine Cocaine Screen (Negative) U Marijuana (THC) Screen (Negative) Ketones (<0.27) mmol/L SARS-CoV-2 (PCR) (Negative) 10/17/21 10/17/21 10/17/21 Range/Units 15:25 16:20 16:20 WBC (4.5-11.0) X10^3/uL RBC (4.0-5.2) X10^6/uL Hgb (12.0-16.0) g/dL Hct (36-46) % MCV (80-100) fL MCH (26-34) PG MCHC (30-36) % RDW (11.6-14.8) % Plt Count (150-400) X10^3/uL Neut % (Auto) (50-75) % Lymph % (Auto) (25-40) % Stephens % (Auto) (3-14) % Eos % (Auto) (2-4) % Baso % (Auto) (0-2) % Neut # (Auto) (6321-3191) /uL Lymph # (Auto) (8876-9218) /uL Stephens # (Auto) (0-900) /uL Eos # (Auto) (0-450) /uL Baso # (Auto) (0-100) /uL Total Counted Seg Neutrophils % (38-70) % Band Neutrophils % (3-7) % Lymphocytes % (Manual) (25-45) % Atypical Lymphs % ( - 0) % Monocytes % (Manual) (2-11) % Metamyelocytes % (-0) % Neutrophils # (Manual) (9409-6447) /uL RBC Morphology Anisocytosis ABG pH 7.32 L (7.35-7.45) ABG pCO2 13.4 L* (35-45) mmHg ABG pO2 116 H (80-100) mmHg ABG HCO3 7 L (22-26) mmol/L ABG Total CO2 7 L (21-31) mmol/L ABG O2 Saturation 98 (95-100) % ABG Base Excess -19.0 L (-2-2) mmol/L FiO2 21 Sodium (137-145) mmol/L Potassium (3.4-5.1) mmol/L Chloride (98-107) mmol/L Carbon Dioxide (22-32) mmol/L BUN (7-17) mg/dL Creatinine (0.52-1.04) mg/dL Estimated GFR (>60) mL/min BUN/Creatinine Ratio (6-22) Glucose (80-110) mg/dL Lactate (0.7-2.1) mmol/L Calcium (8.4-10.2) mg/dL Total Bilirubin (0.2-1.3) mg/dL AST (14-36) IU/L ALT (<35) IU/L Alkaline Phosphatase (38-126) U/L Ammonia (9-30) umol/L Total Creatine Kinase (30-135) U/L CK-MB (CK-2) CK-MB (CK-2) Rel Index Troponin I (0.01-0.034) ng/mL Total Protein (6.3-8.2) g/dL Albumin (3.5-5.0) g/dL Globulin (1.7-4.1) g/dL Albumin/Globulin Ratio (1.0-2.8) Urine Color Yellow Urine Appearance Sl cloudy Urine pH 5.0 (4.5-8.0) Ur Specific [place] 1.010 (1.000-1.035) Urine Protein 1+ H (Negative) Urine Glucose (UA) 3+ H (Negative) g/dL Urine Ketones 1+ H (NEGATIVE) Urine Occult Blood 1+ H (Negative) Urine Nitrate Negative (Negative) Urine Bilirubin Negative (NEGATIVE) Urine Urobilinogen 0.2 (0.2) E.U./dL Ur Leukocyte Esterase Negative (NEGATIVE) Urine RBC 0-1/hpf (0-5/HPF) Urine WBC 1-5/hpf (0-5/HPF) Ur Squamous Epith Cells 1-5 /hpf (0-5/HPF) Amorphous Sediment 1+ Urine Bacteria Many (>30) H (None) Ur Culture Indicated? Cult not indicated U Opiates 300ng/mL cut Negative (Negative) Ur Oxycodone Screen Negative (Negative) Urine Methadone Screen Negative (Negative) Ur Barbiturates Screen Negative (Negative) U Tricyclic Antidepress Negative (Negative) Ur Phencyclidine Scrn Negative (Negative) Ur Amphetamines Screen Negative (Negative) U Methamphetamines Scrn Negative (Negative) Ur MDMA Scrn (Ecstasy) Negative (Negative) U Benzodiazepines Scrn Negative (Negative) Urine Cocaine Screen Negative (Negative) U Marijuana (THC) Screen Negative (Negative) Ketones (<0.27) mmol/L SARS-CoV-2 (PCR) (Negative) 10/17/21 10/17/21 10/17/21 Range/Units 16:34 16:45 16:45 WBC (4.5-11.0) X10^3/uL RBC (4.0-5.2) X10^6/uL Hgb 10.9 L (12.0-16.0) g/dL Hct 36.3 (36-46) % MCV (80-100) fL MCH (26-34) PG MCHC (30-36) % RDW (11.6-14.8) % Plt Count (150-400) X10^3/uL Neut % (Auto) (50-75) % Lymph % (Auto) (25-40) % Stephens % (Auto) (3-14) % Eos % (Auto) (2-4) % Baso % (Auto) (0-2) % Neut # (Auto) (0193-7744) /uL Lymph # (Auto) (7740-4710) /uL Stephens # (Auto) (0-900) /uL Eos # (Auto) (0-450) /uL Baso # (Auto) (0-100) /uL Total Counted Seg Neutrophils % (38-70) % Band Neutrophils % (3-7) % Lymphocytes % (Manual) (25-45) % Atypical Lymphs % ( - 0) % Monocytes % (Manual) (2-11) % Metamyelocytes % (-0) % Neutrophils # (Manual) (0382-8238) /uL RBC Morphology Anisocytosis ABG pH (7.35-7.45) ABG pCO2 (35-45) mmHg ABG pO2 (80-100) mmHg ABG HCO3 (22-26) mmol/L ABG Total CO2 (21-31) mmol/L ABG O2 Saturation (95-100) % ABG Base Excess (-2-2) mmol/L FiO2 Sodium (137-145) mmol/L Potassium (3.4-5.1) mmol/L Chloride (98-107) mmol/L Carbon Dioxide (22-32) mmol/L BUN (7-17) mg/dL Creatinine (0.52-1.04) mg/dL Estimated GFR (>60) mL/min BUN/Creatinine Ratio (6-22) Glucose (80-110) mg/dL Lactate (0.7-2.1) mmol/L Calcium (8.4-10.2) mg/dL Total Bilirubin (0.2-1.3) mg/dL AST (14-36) IU/L ALT (<35) IU/L Alkaline Phosphatase (38-126) U/L Ammonia (9-30) umol/L Total Creatine Kinase (30-135) U/L CK-MB (CK-2) CK-MB (CK-2) Rel Index Troponin I (0.01-0.034) ng/mL Total Protein (6.3-8.2) g/dL Albumin (3.5-5.0) g/dL Globulin (1.7-4.1) g/dL Albumin/Globulin Ratio (1.0-2.8) Urine Color Urine Appearance Urine pH (4.5-8.0) Ur Specific [place] (1.000-1.035) Urine Protein (Negative) Urine Glucose (UA) (Negative) g/dL Urine Ketones (NEGATIVE) Urine Occult Blood (Negative) Urine Nitrate (Negative) Urine Bilirubin (NEGATIVE) Urine Urobilinogen (0.2) E.U./dL Ur Leukocyte Esterase (NEGATIVE) Urine RBC (0-5/HPF) Urine WBC (0-5/HPF) Ur Squamous Epith Cells (0-5/HPF) Amorphous Sediment Urine Bacteria (None) Ur Culture Indicated? U Opiates 300ng/mL cut (Negative) Ur Oxycodone Screen (Negative) Urine Methadone Screen (Negative) Ur Barbiturates Screen (Negative) U Tricyclic Antidepress (Negative) Ur Phencyclidine Scrn (Negative) Ur Amphetamines Screen (Negative) U Methamphetamines Scrn (Negative) Ur MDMA Scrn (Ecstasy) (Negative) U Benzodiazepines Scrn (Negative) Urine Cocaine Screen (Negative) U Marijuana (THC) Screen (Negative) Ketones 18.49 H (<0.27) mmol/L SARS-CoV-2 (PCR) Negative (Negative) 10/17/21 10/17/21 10/17/21 Range/Units 16:45 19:22 19:22 WBC 31.1 H* (4.5-11.0) X10^3/uL RBC 3.85 L (4.0-5.2) X10^6/uL Hgb 11.5 L (12.0-16.0) g/dL Hct 36.6 (36-46) % MCV 95.1 D (80-100) fL MCH 29.8 (26-34) PG MCHC 31.4 (30-36) % RDW 16.3 H (11.6-14.8) % Plt Count 303 (150-400) X10^3/uL Neut % (Auto) Not Reportable (50-75) % Lymph % (Auto) Not Reportable (25-40) % Stephens % (Auto) Not Reportable (3-14) % Eos % (Auto) Not Reportable (2-4) % Baso % (Auto) Not Reportable (0-2) % Neut # (Auto) (8862-4590) /uL Lymph # (Auto) Not Reportable (8586-0572) /uL Stephens # (Auto) Not Reportable (0-900) /uL Eos # (Auto) (0-450) /uL Baso # (Auto) Not Reportable (0-100) /uL Total Counted 100 Seg Neutrophils % 74.0 H (38-70) % Band Neutrophils % 12.0 H (3-7) % Lymphocytes % (Manual) 5.0 L (25-45) % Atypical Lymphs % 1.0 H ( - 0) % Monocytes % (Manual) 7.0 (2-11) % Metamyelocytes % 1.0 H (-0) % Neutrophils # (Manual) 93517 H (3186-7726) /uL RBC Morphology See below Anisocytosis 1+ H ABG pH (7.35-7.45) ABG pCO2 (35-45) mmHg ABG pO2 (80-100) mmHg ABG HCO3 (22-26) mmol/L ABG Total CO2 (21-31) mmol/L ABG O2 Saturation (95-100) % ABG Base Excess (-2-2) mmol/L FiO2 Sodium 140 (137-145) mmol/L Potassium 3.0 L (3.4-5.1) mmol/L Chloride 101 (98-107) mmol/L Carbon Dioxide 15 L (22-32) mmol/L BUN 32 H (7-17) mg/dL Creatinine 1.30 H (0.52-1.04) mg/dL Estimated GFR 41 L (>60) mL/min BUN/Creatinine Ratio 24.6 H (6-22) Glucose 823 H* 582 H* (80-110) mg/dL Lactate (0.7-2.1) mmol/L Calcium 8.4 (8.4-10.2) mg/dL Total Bilirubin 0.4 (0.2-1.3) mg/dL AST 23 (14-36) IU/L ALT 16 (<35) IU/L Alkaline Phosphatase 140 H (38-126) U/L Ammonia (9-30) umol/L Total Creatine Kinase 22 L (30-135) U/L CK-MB (CK-2) TNP CK-MB (CK-2) Rel Index TNP Troponin I 0.018 (0.01-0.034) ng/mL Total Protein 6.0 L (6.3-8.2) g/dL Albumin 2.9 L (3.5-5.0) g/dL Globulin 3.1 (1.7-4.1) g/dL Albumin/Globulin Ratio 0.9 L (1.0-2.8) Urine Color Urine Appearance Urine pH (4.5-8.0) Ur Specific [place] (1.000-1.035) Urine Protein (Negative) Urine Glucose (UA) (Negative) g/dL Urine Ketones (NEGATIVE) Urine Occult Blood (Negative) Urine Nitrate (Negative) Urine Bilirubin (NEGATIVE) Urine Urobilinogen (0.2) E.U./dL Ur Leukocyte Esterase (NEGATIVE) Urine RBC (0-5/HPF) Urine WBC (0-5/HPF) Ur Squamous Epith Cells (0-5/HPF) Amorphous Sediment Urine Bacteria (None) Ur Culture Indicated? U Opiates 300ng/mL cut (Negative) Ur Oxycodone Screen (Negative) Urine Methadone Screen (Negative) Ur Barbiturates Screen (Negative) U Tricyclic Antidepress (Negative) Ur Phencyclidine Scrn (Negative) Ur Amphetamines Screen (Negative) U Methamphetamines Scrn (Negative) Ur MDMA Scrn (Ecstasy) (Negative) U Benzodiazepines Scrn (Negative) Urine Cocaine Screen (Negative) U Marijuana (THC) Screen (Negative) Ketones (<0.27) mmol/L SARS-CoV-2 (PCR) (Negative) 10/17/21 10/17/21 Range/Units 19:22 21:05 WBC (4.5-11.0) X10^3/uL RBC (4.0-5.2) X10^6/uL Hgb (12.0-16.0) g/dL Hct (36-46) % MCV (80-100) fL MCH (26-34) PG MCHC (30-36) % RDW (11.6-14.8) % Plt Count (150-400) X10^3/uL Neut % (Auto) (50-75) % Lymph % (Auto) (25-40) % Stephens % (Auto) (3-14) % Eos % (Auto) (2-4) % Baso % (Auto) (0-2) % Neut # (Auto) (2055-9618) /uL Lymph # (Auto) (0830-7627) /uL Stephens # (Auto) (0-900) /uL Eos # (Auto) (0-450) /uL Baso # (Auto) (0-100) /uL Total Counted Seg Neutrophils % (38-70) % Band Neutrophils % (3-7) % Lymphocytes % (Manual) (25-45) % Atypical Lymphs % ( - 0) % Monocytes % (Manual) (2-11) % Metamyelocytes % (-0) % Neutrophils # (Manual) (9322-1802) /uL RBC Morphology Anisocytosis ABG pH (7.35-7.45) ABG pCO2 (35-45) mmHg ABG pO2 (80-100) mmHg ABG HCO3 (22-26) mmol/L ABG Total CO2 (21-31) mmol/L ABG O2 Saturation (95-100) % ABG Base Excess (-2-2) mmol/L FiO2 Sodium (137-145) mmol/L Potassium (3.4-5.1) mmol/L Chloride (98-107) mmol/L Carbon Dioxide (22-32) mmol/L BUN (7-17) mg/dL Creatinine (0.52-1.04) mg/dL Estimated GFR (>60) mL/min BUN/Creatinine Ratio (6-22) Glucose 480 H D (80-110) mg/dL Lactate 4.3 H* (0.7-2.1) mmol/L Calcium (8.4-10.2) mg/dL Total Bilirubin (0.2-1.3) mg/dL AST (14-36) IU/L ALT (<35) IU/L Alkaline Phosphatase (38-126) U/L Ammonia (9-30) umol/L Total Creatine Kinase (30-135) U/L CK-MB (CK-2) CK-MB (CK-2) Rel Index Troponin I (0.01-0.034) ng/mL Total Protein (6.3-8.2) g/dL Albumin (3.5-5.0) g/dL Globulin (1.7-4.1) g/dL Albumin/Globulin Ratio (1.0-2.8) Urine Color Urine Appearance Urine pH (4.5-8.0) Ur Specific [place] (1.000-1.035) Urine Protein (Negative) Urine Glucose (UA) (Negative) g/dL Urine Ketones (NEGATIVE) Urine Occult Blood (Negative) Urine Nitrate (Negative) Urine Bilirubin (NEGATIVE) Urine Urobilinogen (0.2) E.U./dL Ur Leukocyte Esterase (NEGATIVE) Urine RBC (0-5/HPF) Urine WBC (0-5/HPF) Ur Squamous Epith Cells (0-5/HPF) Amorphous Sediment Urine Bacteria (None) Ur Culture Indicated? U Opiates 300ng/mL cut (Negative) Ur Oxycodone Screen (Negative) Urine Methadone Screen (Negative) Ur Barbiturates Screen (Negative) U Tricyclic Antidepress (Negative) Ur Phencyclidine Scrn (Negative) Ur Amphetamines Screen (Negative) U Methamphetamines Scrn (Negative) Ur MDMA Scrn (Ecstasy) (Negative) U Benzodiazepines Scrn (Negative) Urine Cocaine Screen (Negative) U Marijuana (THC) Screen (Negative) Ketones (<0.27) mmol/L SARS-CoV-2 (PCR) (Negative) Point of Care Testing Glucose POC 431 MDM Narrative Medical decision making narrative: At change of shift care will be transferred to Dr. Jimenez [[id number]] (Tony) Patient received in sign out from [Alice]. I have reviewed the clinical course and performed an independent history and physical exam. Imaging ordered. Repeat labs ordered Upon receipt of imaging and the rather ominous findings I contacted the patient's daughter and DPOA. She confirmed with me that the patient's wishes are very clearly DNR and she would not want any large or invasive surgery such as that which would be required in the circumstances. She states that she and her sister will be coming up to the hospital shortly to see the patient. They do ask the patient be treated with comfort as a goal, we discussed pulling off even the insulin drip and they are on board with this approach. They understand the severity of the diagnosis and that it is very unlikely that she will make it through <Russel Jenkins MD - Last Filed: 10/17/21 21:34> Lab Data Labs: Lab Results 10/17/21 10/17/21 10/17/21 Range/Units 13:10 13:10 13:10 WBC 21.1 H (4.5-11.0) X10^3/uL RBC 4.29 (4.0-5.2) X10^6/uL Hgb 13.0 (12.0-16.0) g/dL Hct 43.6 (36-46) % MCV 101.7 H (80-100) fL MCH 30.4 (26-34) PG MCHC 29.9 L (30-36) % RDW 17.4 H (11.6-14.8) % Plt Count 305 (150-400) X10^3/uL Neut % (Auto) 92.8 H (50-75) % Lymph % (Auto) 3.0 L (25-40) % Stephens % (Auto) 4.0 (3-14) % Eos % (Auto) 0.0 L (2-4) % Baso % (Auto) 0.2 (0-2) % Neut # (Auto) 51755 H (0236-8484) /uL Lymph # (Auto) 600 L (4429-3231) /uL Stephens # (Auto) 800 (0-900) /uL Eos # (Auto) 0 (0-450) /uL Baso # (Auto) 0 (0-100) /uL Total Counted Seg Neutrophils % (38-70) % Band Neutrophils % (3-7) % Lymphocytes % (Manual) (25-45) % Atypical Lymphs % ( - 0) % Monocytes % (Manual) (2-11) % Metamyelocytes % (-0) % Neutrophils # (Manual) (5361-3620) /uL RBC Morphology Anisocytosis ABG pH (7.35-7.45) ABG pCO2 (35-45) mmHg ABG pO2 (80-100) mmHg ABG HCO3 (22-26) mmol/L ABG Total CO2 (21-31) mmol/L ABG O2 Saturation (95-100) % ABG Base Excess (-2-2) mmol/L FiO2 Sodium 134 L (137-145) mmol/L Potassium 3.3 L (3.4-5.1) mmol/L Chloride 86 L (98-107) mmol/L Carbon Dioxide 11 L (22-32) mmol/L BUN 27 H (7-17) mg/dL Creatinine 1.59 H (0.52-1.04) mg/dL Estimated GFR 32 L (>60) mL/min BUN/Creatinine Ratio 17.0 (6-22) Glucose 1064 H* (80-110) mg/dL Lactate (0.7-2.1) mmol/L Calcium 9.5 (8.4-10.2) mg/dL Total Bilirubin 0.5 (0.2-1.3) mg/dL AST 18 (14-36) IU/L ALT 15 (<35) IU/L Alkaline Phosphatase 175 H (38-126) U/L Ammonia < 9 L (9-30) umol/L Total Creatine Kinase (30-135) U/L CK-MB (CK-2) CK-MB (CK-2) Rel Index Troponin I (0.01-0.034) ng/mL Total Protein 6.7 (6.3-8.2) g/dL Albumin 3.4 L (3.5-5.0) g/dL Globulin 3.3 (1.7-4.1) g/dL Albumin/Globulin Ratio 1.0 (1.0-2.8) Urine Color Urine Appearance Urine pH (4.5-8.0) Ur Specific [place] (1.000-1.035) Urine Protein (Negative) Urine Glucose (UA) (Negative) g/dL Urine Ketones (NEGATIVE) Urine Occult Blood (Negative) Urine Nitrate (Negative) Urine Bilirubin (NEGATIVE) Urine Urobilinogen (0.2) E.U./dL Ur Leukocyte Esterase (NEGATIVE) Urine RBC (0-5/HPF) Urine WBC (0-5/HPF) Ur Squamous Epith Cells (0-5/HPF) Amorphous Sediment Urine Bacteria (None) Ur Culture Indicated? U Opiates 300ng/mL cut (Negative) Ur Oxycodone Screen (Negative) Urine Methadone Screen (Negative) Ur Barbiturates Screen (Negative) U Tricyclic Antidepress (Negative) Ur Phencyclidine Scrn (Negative) Ur Amphetamines Screen (Negative) U Methamphetamines Scrn (Negative) Ur MDMA Scrn (Ecstasy) (Negative) U Benzodiazepines Scrn (Negative) Urine Cocaine Screen (Negative) U Marijuana (THC) Screen (Negative) Ketones (<0.27) mmol/L SARS-CoV-2 (PCR) (Negative) 10/17/21 10/17/21 10/17/21 Range/Units 15:25 16:20 16:20 WBC (4.5-11.0) X10^3/uL RBC (4.0-5.2) X10^6/uL Hgb (12.0-16.0) g/dL Hct (36-46) % MCV (80-100) fL MCH (26-34) PG MCHC (30-36) % RDW (11.6-14.8) % Plt Count (150-400) X10^3/uL Neut % (Auto) (50-75) % Lymph % (Auto) (25-40) % Stephens % (Auto) (3-14) % Eos % (Auto) (2-4) % Baso % (Auto) (0-2) % Neut # (Auto) (7541-5110) /uL Lymph # (Auto) (7010-0438) /uL Stephens # (Auto) (0-900) /uL Eos # (Auto) (0-450) /uL Baso # (Auto) (0-100) /uL Total Counted Seg Neutrophils % (38-70) % Band Neutrophils % (3-7) % Lymphocytes % (Manual) (25-45) % Atypical Lymphs % ( - 0) % Monocytes % (Manual) (2-11) % Metamyelocytes % (-0) % Neutrophils # (Manual) (0622-0719) /uL RBC Morphology Anisocytosis ABG pH 7.32 L (7.35-7.45) ABG pCO2 13.4 L* (35-45) mmHg ABG pO2 116 H (80-100) mmHg ABG HCO3 7 L (22-26) mmol/L ABG Total CO2 7 L (21-31) mmol/L ABG O2 Saturation 98 (95-100) % ABG Base Excess -19.0 L (-2-2) mmol/L FiO2 21 Sodium (137-145) mmol/L Potassium (3.4-5.1) mmol/L Chloride (98-107) mmol/L Carbon Dioxide (22-32) mmol/L BUN (7-17) mg/dL Creatinine (0.52-1.04) mg/dL Estimated GFR (>60) mL/min BUN/Creatinine Ratio (6-22) Glucose (80-110) mg/dL Lactate (0.7-2.1) mmol/L Calcium (8.4-10.2) mg/dL Total Bilirubin (0.2-1.3) mg/dL AST (14-36) IU/L ALT (<35) IU/L Alkaline Phosphatase (38-126) U/L Ammonia (9-30) umol/L Total Creatine Kinase (30-135) U/L CK-MB (CK-2) CK-MB (CK-2) Rel Index Troponin I (0.01-0.034) ng/mL Total Protein (6.3-8.2) g/dL Albumin (3.5-5.0) g/dL Globulin (1.7-4.1) g/dL Albumin/Globulin Ratio (1.0-2.8) Urine Color Yellow Urine Appearance Sl cloudy Urine pH 5.0 (4.5-8.0) Ur Specific [place] 1.010 (1.000-1.035) Urine Protein 1+ H (Negative) Urine Glucose (UA) 3+ H (Negative) g/dL Urine Ketones 1+ H (NEGATIVE) Urine Occult Blood 1+ H (Negative) Urine Nitrate Negative (Negative) Urine Bilirubin Negative (NEGATIVE) Urine Urobilinogen 0.2 (0.2) E.U./dL Ur Leukocyte Esterase Negative (NEGATIVE) Urine RBC 0-1/hpf (0-5/HPF) Urine WBC 1-5/hpf (0-5/HPF) Ur Squamous Epith Cells 1-5 /hpf (0-5/HPF) Amorphous Sediment 1+ Urine Bacteria Many (>30) H (None) Ur Culture Indicated? Cult not indicated U Opiates 300ng/mL cut Negative (Negative) Ur Oxycodone Screen Negative (Negative) Urine Methadone Screen Negative (Negative) Ur Barbiturates Screen Negative (Negative) U Tricyclic Antidepress Negative (Negative) Ur Phencyclidine Scrn Negative (Negative) Ur Amphetamines Screen Negative (Negative) U Methamphetamines Scrn Negative (Negative) Ur MDMA Scrn (Ecstasy) Negative (Negative) U Benzodiazepines Scrn Negative (Negative) Urine Cocaine Screen Negative (Negative) U Marijuana (THC) Screen Negative (Negative) Ketones (<0.27) mmol/L SARS-CoV-2 (PCR) (Negative) 10/17/21 10/17/21 10/17/21 Range/Units 16:34 16:45 16:45 WBC (4.5-11.0) X10^3/uL RBC (4.0-5.2) X10^6/uL Hgb 10.9 L (12.0-16.0) g/dL Hct 36.3 (36-46) % MCV (80-100) fL MCH (26-34) PG MCHC (30-36) % RDW (11.6-14.8) % Plt Count (150-400) X10^3/uL Neut % (Auto) (50-75) % Lymph % (Auto) (25-40) % Stephens % (Auto) (3-14) % Eos % (Auto) (2-4) % Baso % (Auto) (0-2) % Neut # (Auto) (0552-1479) /uL Lymph # (Auto) (5351-9689) /uL Stephens # (Auto) (0-900) /uL Eos # (Auto) (0-450) /uL Baso # (Auto) (0-100) /uL Total Counted Seg Neutrophils % (38-70) % Band Neutrophils % (3-7) % Lymphocytes % (Manual) (25-45) % Atypical Lymphs % ( - 0) % Monocytes % (Manual) (2-11) % Metamyelocytes % (-0) % Neutrophils # (Manual) (6419-5449) /uL RBC Morphology Anisocytosis ABG pH (7.35-7.45) ABG pCO2 (35-45) mmHg ABG pO2 (80-100) mmHg ABG HCO3 (22-26) mmol/L ABG Total CO2 (21-31) mmol/L ABG O2 Saturation (95-100) % ABG Base Excess (-2-2) mmol/L FiO2 Sodium (137-145) mmol/L Potassium (3.4-5.1) mmol/L Chloride (98-107) mmol/L Carbon Dioxide (22-32) mmol/L BUN (7-17) mg/dL Creatinine (0.52-1.04) mg/dL Estimated GFR (>60) mL/min BUN/Creatinine Ratio (6-22) Glucose (80-110) mg/dL Lactate (0.7-2.1) mmol/L Calcium (8.4-10.2) mg/dL Total Bilirubin (0.2-1.3) mg/dL AST (14-36) IU/L ALT (<35) IU/L Alkaline Phosphatase (38-126) U/L Ammonia (9-30) umol/L Total Creatine Kinase (30-135) U/L CK-MB (CK-2) CK-MB (CK-2) Rel Index Troponin I (0.01-0.034) ng/mL Total Protein (6.3-8.2) g/dL Albumin (3.5-5.0) g/dL Globulin (1.7-4.1) g/dL Albumin/Globulin Ratio (1.0-2.8) Urine Color Urine Appearance Urine pH (4.5-8.0) Ur Specific [place] (1.000-1.035) Urine Protein (Negative) Urine Glucose (UA) (Negative) g/dL Urine Ketones (NEGATIVE) Urine Occult Blood (Negative) Urine Nitrate (Negative) Urine Bilirubin (NEGATIVE) Urine Urobilinogen (0.2) E.U./dL Ur Leukocyte Esterase (NEGATIVE) Urine RBC (0-5/HPF) Urine WBC (0-5/HPF) Ur Squamous Epith Cells (0-5/HPF) Amorphous Sediment Urine Bacteria (None) Ur Culture Indicated? U Opiates 300ng/mL cut (Negative) Ur Oxycodone Screen (Negative) Urine Methadone Screen (Negative) Ur Barbiturates Screen (Negative) U Tricyclic Antidepress (Negative) Ur Phencyclidine Scrn (Negative) Ur Amphetamines Screen (Negative) U Methamphetamines Scrn (Negative) Ur MDMA Scrn (Ecstasy) (Negative) U Benzodiazepines Scrn (Negative) Urine Cocaine Screen (Negative) U Marijuana (THC) Screen (Negative) Ketones 18.49 H (<0.27) mmol/L SARS-CoV-2 (PCR) Negative (Negative) 10/17/21 10/17/21 10/17/21 Range/Units 16:45 19:22 19:22 WBC 31.1 H* (4.5-11.0) X10^3/uL RBC 3.85 L (4.0-5.2) X10^6/uL Hgb 11.5 L (12.0-16.0) g/dL Hct 36.6 (36-46) % MCV 95.1 D (80-100) fL MCH 29.8 (26-34) PG MCHC 31.4 (30-36) % RDW 16.3 H (11.6-14.8) % Plt Count 303 (150-400) X10^3/uL Neut % (Auto) Not Reportable (50-75) % Lymph % (Auto) Not Reportable (25-40) % Stephens % (Auto) Not Reportable (3-14) % Eos % (Auto) Not Reportable (2-4) % Baso % (Auto) Not Reportable (0-2) % Neut # (Auto) (2604-6029) /uL Lymph # (Auto) Not Reportable (7907-6699) /uL Stephens # (Auto) Not Reportable (0-900) /uL Eos # (Auto) (0-450) /uL Baso # (Auto) Not Reportable (0-100) /uL Total Counted 100 Seg Neutrophils % 74.0 H (38-70) % Band Neutrophils % 12.0 H (3-7) % Lymphocytes % (Manual) 5.0 L (25-45) % Atypical Lymphs % 1.0 H ( - 0) % Monocytes % (Manual) 7.0 (2-11) % Metamyelocytes % 1.0 H (-0) % Neutrophils # (Manual) 19907 H (7815-2599) /uL RBC Morphology See below Anisocytosis 1+ H ABG pH (7.35-7.45) ABG pCO2 (35-45) mmHg ABG pO2 (80-100) mmHg ABG HCO3 (22-26) mmol/L ABG Total CO2 (21-31) mmol/L ABG O2 Saturation (95-100) % ABG Base Excess (-2-2) mmol/L FiO2 Sodium 140 (137-145) mmol/L Potassium 3.0 L (3.4-5.1) mmol/L Chloride 101 (98-107) mmol/L Carbon Dioxide 15 L (22-32) mmol/L BUN 32 H (7-17) mg/dL Creatinine 1.30 H (0.52-1.04) mg/dL Estimated GFR 41 L (>60) mL/min BUN/Creatinine Ratio 24.6 H (6-22) Glucose 823 H* 582 H* (80-110) mg/dL Lactate (0.7-2.1) mmol/L Calcium 8.4 (8.4-10.2) mg/dL Total Bilirubin 0.4 (0.2-1.3) mg/dL AST 23 (14-36) IU/L ALT 16 (<35) IU/L Alkaline Phosphatase 140 H (38-126) U/L Ammonia (9-30) umol/L Total Creatine Kinase 22 L (30-135) U/L CK-MB (CK-2) TNP CK-MB (CK-2) Rel Index TNP Troponin I 0.018 (0.01-0.034) ng/mL Total Protein 6.0 L (6.3-8.2) g/dL Albumin 2.9 L (3.5-5.0) g/dL Globulin 3.1 (1.7-4.1) g/dL Albumin/Globulin Ratio 0.9 L (1.0-2.8) Urine Color Urine Appearance Urine pH (4.5-8.0) Ur Specific [place] (1.000-1.035) Urine Protein (Negative) Urine Glucose (UA) (Negative) g/dL Urine Ketones (NEGATIVE) Urine Occult Blood (Negative) Urine Nitrate (Negative) Urine Bilirubin (NEGATIVE) Urine Urobilinogen (0.2) E.U./dL Ur Leukocyte Esterase (NEGATIVE) Urine RBC (0-5/HPF) Urine WBC (0-5/HPF) Ur Squamous Epith Cells (0-5/HPF) Amorphous Sediment Urine Bacteria (None) Ur Culture Indicated? U Opiates 300ng/mL cut (Negative) Ur Oxycodone Screen (Negative) Urine Methadone Screen (Negative) Ur Barbiturates Screen (Negative) U Tricyclic Antidepress (Negative) Ur Phencyclidine Scrn (Negative) Ur Amphetamines Screen (Negative) U Methamphetamines Scrn (Negative) Ur MDMA Scrn (Ecstasy) (Negative) U Benzodiazepines Scrn (Negative) Urine Cocaine Screen (Negative) U Marijuana (THC) Screen (Negative) Ketones (<0.27) mmol/L SARS-CoV-2 (PCR) (Negative) 10/17/21 10/17/21 Range/Units 19:22 21:05 WBC (4.5-11.0) X10^3/uL RBC (4.0-5.2) X10^6/uL Hgb (12.0-16.0) g/dL Hct (36-46) % MCV (80-100) fL MCH (26-34) PG MCHC (30-36) % RDW (11.6-14.8) % Plt Count (150-400) X10^3/uL Neut % (Auto) (50-75) % Lymph % (Auto) (25-40) % Stephens % (Auto) (3-14) % Eos % (Auto) (2-4) % Baso % (Auto) (0-2) % Neut # (Auto) (2920-5224) /uL Lymph # (Auto) (4711-5539) /uL Stephens # (Auto) (0-900) /uL Eos # (Auto) (0-450) /uL Baso # (Auto) (0-100) /uL Total Counted Seg Neutrophils % (38-70) % Band Neutrophils % (3-7) % Lymphocytes % (Manual) (25-45) % Atypical Lymphs % ( - 0) % Monocytes % (Manual) (2-11) % Metamyelocytes % (-0) % Neutrophils # (Manual) (9580-5330) /uL RBC Morphology Anisocytosis ABG pH (7.35-7.45) ABG pCO2 (35-45) mmHg ABG pO2 (80-100) mmHg ABG HCO3 (22-26) mmol/L ABG Total CO2 (21-31) mmol/L ABG O2 Saturation (95-100) % ABG Base Excess (-2-2) mmol/L FiO2 Sodium (137-145) mmol/L Potassium (3.4-5.1) mmol/L Chloride (98-107) mmol/L Carbon Dioxide (22-32) mmol/L BUN (7-17) mg/dL Creatinine (0.52-1.04) mg/dL Estimated GFR (>60) mL/min BUN/Creatinine Ratio (6-22) Glucose 480 H D (80-110) mg/dL Lactate 4.3 H* (0.7-2.1) mmol/L Calcium (8.4-10.2) mg/dL Total Bilirubin (0.2-1.3) mg/dL AST (14-36) IU/L ALT (<35) IU/L Alkaline Phosphatase (38-126) U/L Ammonia (9-30) umol/L Total Creatine Kinase (30-135) U/L CK-MB (CK-2) CK-MB (CK-2) Rel Index Troponin I (0.01-0.034) ng/mL Total Protein (6.3-8.2) g/dL Albumin (3.5-5.0) g/dL Globulin (1.7-4.1) g/dL Albumin/Globulin Ratio (1.0-2.8) Urine Color Urine Appearance Urine pH (4.5-8.0) Ur Specific [place] (1.000-1.035) Urine Protein (Negative) Urine Glucose (UA) (Negative) g/dL Urine Ketones (NEGATIVE) Urine Occult Blood (Negative) Urine Nitrate (Negative) Urine Bilirubin (NEGATIVE) Urine Urobilinogen (0.2) E.U./dL Ur Leukocyte Esterase (NEGATIVE) Urine RBC (0-5/HPF) Urine WBC (0-5/HPF) Ur Squamous Epith Cells (0-5/HPF) Amorphous Sediment Urine Bacteria (None) Ur Culture Indicated? U Opiates 300ng/mL cut (Negative) Ur Oxycodone Screen (Negative) Urine Methadone Screen (Negative) Ur Barbiturates Screen (Negative) U Tricyclic Antidepress (Negative) Ur Phencyclidine Scrn (Negative) Ur Amphetamines Screen (Negative) U Methamphetamines Scrn (Negative) Ur MDMA Scrn (Ecstasy) (Negative) U Benzodiazepines Scrn (Negative) Urine Cocaine Screen (Negative) U Marijuana (THC) Screen (Negative) Ketones (<0.27) mmol/L SARS-CoV-2 (PCR) (Negative) Point of Care Testing Glucose POC 431 Imaging Data Chest x-ray: Radiologist's Impression: Signed Patient: Aram Condon MR#: [id number] : 1940 Acct:[id number] Age/Sex: 81 / F Date of Service: 10/17/21 Loc: ED Accession Number: [id number] ?? Procedure: XR chest 1V Ordering Provider: Russel Jenkins MD PROCEDURE:? XR CHEST 1V ? INDICATIONS:? altered mental status ? TECHNIQUE:? One view of the chest was acquired.? ? COMPARISON:? None. ? FINDINGS:? ? Examination is somewhat limited given oblique and lordotic positioning of the patient. ? Surgical changes and devices:? None.? Overlying EKG wires. ? Lungs and pleura:? Lungs are clear.? No pleural effusions or pneumothorax.? ? Mediastinum:? Mediastinal contours appear normal.? Heart size is normal.? Vascular calcifications within the aorta. ? Bones and chest wall:? No suspicious bony lesions.? Degenerative changes without acute osseous abnormality.? Likely vascular calcifications noted within the right axilla. ? IMPRESSION:? ? No evidence of an acute cardiopulmonary abnormality. ? ? Dictated by: Uri Donovan D.O. on 10/17/2021 at 12:45 ? ? Approved by: Uri Donovan D.O. on 10/17/2021 at 12:47 ? MDM Narrative Medical decision making narrative: At change of shift care will be transferred to Dr. Jimenez Discharge Plan Departure Patient Disposition: Admitted As Inpatient Clinical Impression: Diabetic keto-acidosis, Hematemesis, Atrial fibrillation with rapid ventricular response, Sepsis associated hypotension Admit Date/Time: 10/17/21 23:04 Admit Provider: Go Rush
--- NOTE | 2021-10-17 16:35 | PC.NURSE ---
right upper arm dual lumen midline 18 cm length insertion
[2021-10-17 16:46] LABS: UR Morphine/Opiate cutoff 300 Negative (Negative); Ur Creatinine Normal (Normal); Ur Specific Gravity Normal (Normal); Urine Amphetamines Negative (Negative); Urine Cocaine Negative (Negative); Urine MDMA Negative (Negative); Urine Methamphetamines Negative (Negative); Urine Phencyclidine Negative (Negative); Urine Tetrahydrocannabinol Negative (Negative); Urine pH Normal (Normal)
[2021-10-17 16:47] LABS: Urine Barbiturates Negative (Negative); Urine Benzodiazepines Negative (Negative); Urine Methadone Negative (Negative); Urine Oxycodone Negative (Negative); Urine Tricyclic Antidepressant Negative (Negative)
[2021-10-17 17:02] LABS: Hematocrit 36.3 % (36-46); Hemoglobin 10.9 g/dL (12.0-16.0)
[2021-10-17] MEDS: dilTIAZem 5 MG/ML SDV 10 MG IV (17:04)
[2021-10-17 17:08] LABS: Ketones (Beta-Hydroxybutyrate) 18.49 mmol/L (<0.27)
[2021-10-17] MEDS: SODIUM CHLORIDE 0.9% 100 ML 1000 ML IV ×2 (17:14→18:04)
[2021-10-17 17:16] LABS: Glucose 823 mg/dL (80-110)
[2021-10-17 17:19] LABS: Appearance Urine UA SL CLOUDY; Bilirubin Urine UA NEGATIVE (NEGATIVE); Color Urine UA YELLOW; Glucose Urine UA 3+ g/dL (Negative); Ketones Urine UA 1+ (NEGATIVE); Leukocyte Esterase Urine UA NEGATIVE (NEGATIVE); Nitrite Urine UA NEGATIVE (Negative); Occult Blood Urine UA 1+ (Negative); Protein Urine UA 1+ (Negative); Urobilinogen Urine UA 0.2 E.U./dL (0.2)
[2021-10-17] MEDS: METOCLOPRAMIDE 10 MG/2 ML INJ IV (17:26)
[2021-10-17 17:42] LABS: Amorphous Sediment Urine 1+; Bacteria Urine Many (>30); Culture Indicated Urine Cult Not Indicated; RBC Urine 0-1/HPF (0-5/HPF); Squamous Epithelial Cell Urine 1-5 /HPF (0-5/HPF); WBC Urine 1-5/HPF (0-5/HPF)
[2021-10-17 18:44] LABS: COVID19 - ADMIT (NP swab/PCR) Negative (Negative)
--- NOTE | 2021-10-17 19:13 | PC.NURSE ---
above 500 POC
--- NOTE | 2021-10-17 19:25 | PC.NURSE ---
repeat labs sent, glucose recv'd at 580 insulin infusing decreased to 2 units/hr, discussed with Dr Jimenez as pt's infusion was lower than protocol, and pt's blood sugar was dropping at a fast pace will recheck
[2021-10-17 19:34] LABS: Hematocrit 36.6 % (36-46); Hemoglobin 11.5 g/dL (12.0-16.0); Mean Corpuscular HGB Conc 31.4 % (30-36); Mean Corpuscular Hemoglobin 29.8 PG (26-34); Mean Corpuscular Volume 95.1 fL (80-100); Platelet Count 303 X10^3/uL (150-400); Red Blood Cell Count 3.85 X10^6/uL (4.0-5.2); Red Cell Distribution Width 16.3 % (11.6-14.8)
[2021-10-17 19:38] LABS: Add Manual Diff / Slide Review YES; White Blood Cell Count 31.1 X10^3/uL (4.5-11.0)
[2021-10-17 19:48] LABS: Alanine Aminotransferase 16 IU/L (<35); Albumin 2.9 g/dL (3.5-5.0); Albumin Globulin Ratio 0.9 (1.0-2.8); Alkaline Phosphatase 140 U/L (38-126); Aspartate Aminotransferase 23 IU/L (14-36); BUN Creatinine Ratio 24.6 (6-22); Bilirubin Total 0.4 mg/dL (0.2-1.3); Blood Urea Nitrogen 32 mg/dL (7-17); Calcium 8.4 mg/dL (8.4-10.2); Carbon Dioxide 15 mmol/L (22-32); Chloride 101 mmol/L (98-107); Creatine Kinase 22 U/L (30-135); Estimated Glomerular Filt Rate 41 mL/min (>60); Globulin 3.1 g/dL (1.7-4.1); HEMOLYSIS < 15 (0-50); Sodium 140 mmol/L (137-145)
[2021-10-17 19:50] LABS: Glucose 582 mg/dL (80-110)
[2021-10-17 20:00] LABS: Neutrophils Absolute Manual 26746 /uL (3000-5900); Total Cells Counted 100; Troponin I 0.018 ng/mL (0.01-0.034)
[2021-10-17 20:02] LABS: Anisocytosis 1+
--- NOTE | 2021-10-17 20:21 | DI.CT.S_ITS ---
PROCEDURE: CT CHEST ABD PEL W CON INDICATIONS: N/V/D TECHNIQUE: After the administration of intravenous contrast, axial sections acquired from the supraclavicular neck to the pubic symphysis. Coronal and sagittal reformats were performed. For radiation dose reduction, the following was used: automated exposure control, adjustment of mA and/or kV according to patient size. COMPARISON:[facility], CT, CT PEL WO CON, 10/01/2020, 15:23. FINDINGS: Image quality: There is mild motion artifact. CHEST: Lower Neck: No lymphadenopathy by size criteria. Thyroid: Visualized thyroid demonstrates no discrete nodules. Axillae: No lymphadenopathy by size criteria. Chest Wall: Unremarkable. Lungs and Airways: No acute consolidation. There is mild dependent atelectasis bilaterally. No suspicious pulmonary nodules. The trachea and central airways are patent. Pleura: No pneumothorax or pleural effusions. Heart: Heart size is normal. There is a fat density mass involving the intra-atrial septum as well as extending along the inferior aspect of the right atrium likely representing a lipoma. No pericardial effusion. Thoracic Vessels: The aorta and pulmonary arteries are normal in size. Mediastinum and Ashwini: No lymphadenopathy by size criteria. Esophagus: There is diffuse concentric wall thickening and mucosal enhancement throughout the esophagus. ABDOMEN: Liver: There are foci of portal venous gas within the liver. Confluent hypoattenuation is demonstrated throughout the majority of the left hepatic lobe. In addition, there are scattered ill-defined hypoattenuating lesions throughout the right and left lobes, with confluent branching extending from the jackie hepatis into the anterior right hepatic lobe. A few associated internal foci of gas are noted. Gallbladder: Surgically absent. Biliary ducts: There is mild biliary ductal dilatation which may be related to sequelae of prior cholecystectomy. Pancreas: Numerous pancreatic calcifications are present consistent sequelae of chronic pancreatitis. No definite pancreatic duct dilatation although the pancreatic duct appears irregular. There are hypoattenuating collections along the pancreatic tail as well as along the adjacent gastric wall. The collections also extend to the splenic hilum. 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 A telemarketing sales representative collection measures approximately 4.7 x 2.2 cm on series 2, image 52. The collection along the gastric wall measures approximately 5.5 x 2.7 cm on series 2, image 55. Spleen: There wedge-shaped areas of hypoenhancement in the spleen consistent with infarcts. Spleen is normal in overall size. Adrenal Glands: Numerous bilateral nodules are demonstrated within the adrenal glands, left greater than right, with associated enlargement of the left adrenal. Kidneys and Ureters: No hydronephrosis. There are bilateral renal cysts as well as small low-density foci which are too small to characterize but likely represent cysts. Stomach and Bowel: There is wall thickening involving the gastric antrum, duodenum, and additional scattered segments of small bowel in the lower abdomen. The colon is predominantly nondistended. No definite pneumatosis. Peritoneum: There is a small amount of intraperitoneal free fluid in the abdomen and pelvis. No free air. Ventral Wall: No hernia. Abdominal Nodes: No retroperitoneal or mesenteric adenopathy by size criteria. Vessels: Aorta and inferior vena cava are normal in size. There is portal venous gas within the peripheral mesenteric veins as well as within the superior mesenteric vein. Portal venous gas, as noted above, is also demonstrated within the liver. The aorta is normal in caliber with moderate scattered atherosclerotic plaque. There is intraluminal thrombus with severe segmental narrowing in the proximal celiac artery. The left gastric artery arises separately from the aorta and appears patent. There is also plaque and intraluminal thrombus with associated severe narrowing in the proximal superior mesenteric artery. The inferior mesenteric artery appears patent. There is bilateral calcified plaque at the origins of the renal arteries with severe narrowing on the left and moderate narrowing on the right. PELVIS: Pelvic Organs: Unremarkable. Bladder: There is a Garcia catheter within a partially distended urinary bladder. There is concentric bladder wall thickening suggestive of a cystitis. Pelvic Nodes: No enlarged lymph nodes. Miscellaneous: No inguinal hernias are seen. Bones: Visualized osseous structures demonstrate no suspicious focal lesions. IMPRESSION: 1. 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 Portal venous gas demonstrated within the mesenteric veins, SMV, and within the liver. Multiple segments of small bowel wall thickening are demonstrated. The constellation of findings are consistent with mesenteric ischemia. 2. Diffuse esophageal wall thickening with luminal enhancement likely represents an esophagitis. 3. Confluent areas of hypoattenuation in the left hepatic lobe is nonspecific and the differential includes hepatic infarct or hepatitis. Additional scattered hypoattenuating areas within the right and left lobes with internal foci of gas are suspicious for hepatic abscess collections. 4. Wedge-shaped areas of infarct demonstrated within the spleen. 5. Sequelae of chronic pancreatitis demonstrated. Multiple hypoattenuating collections along the pancreatic tail extending to the splenic hilum and gastric wall are suggestive of pancreatic pseudocysts. 6. Numerous bilateral adrenal nodules with enlargement on the left. The findings are nonspecific and the differential includes adrenal aplasia, metastatic disease, or infection. 7. Bladder wall thickening suggestive of a cystitis. Findings discussed with Dr. Jimenez on 10/17/2021 at 9:45 p.m.. Dictated by: Taqueria Stoner M.D. on 10/17/2021 at 21:41 Approved by: Taqueria Stoner M.D. on 10/17/2021 at 22:08
[2021-10-17] MEDS: LACTATED RINGERS 1,000 ML 1000 ML IV (20:51)
[2021-10-17 21:20] LABS: Glucose 480 mg/dL (80-110)
[2021-10-17 21:30] LABS: Lactate (Lactic Acid) 4.3 mmol/L (0.7-2.1)
--- NOTE | 2021-10-17 21:30 | PC.NURSE ---
2100 FSG was >500 so a glucose was sent to lab recv'd results @ 2130 of 480 insulin infusion rate not changed.
--- NOTE | 2021-10-17 21:35 | PC.NURSE ---
critical lab results of glucose of 480 and lactate 4.[address] Jimenez
[2021-10-17] MEDS: PIPERACILLIN/TAZO 4.5 GM in SODIUM CHLORIDE 0.9% 100 ML IV (22:02)
[2021-10-17] MEDS: LACTATED RINGERS 1000 ML IV (22:30)
--- NOTE | 2021-10-17 23:02 | P.HP_ITS ---
History of Present Illness History of Present Illness Date Patient Seen: 10/17/21 Time Patient Seen: 23:00 Chief complaint: weak Dizzy Narrative: Ms. Condon is an 81W with PMH DM2, COPD, HTN, CVA, who was brought into the emergency department with abdominal pain, nausea, and vomiting.?Patient was unable to provide history. Per daughter she has chronic abdominal issues. She over the last two weeks developed significant abdominal pain and decreased appetite. Over the last three days she developed nausea and stopped eating almost entirely. She initially had clear vomit and then dark vomit. In the ED workup was done, vitals notable for tachcyardia and hypotension. Labs notable for for WBC 21->31 with significant bandemia. CO2 11, creatinine 1.59. Glucose 1064. Ketones in blood. Lactate 4.3 She was ordered for IV fluid and started on insulin gtt. She was noted to have an upper GI bleed as well and started on a protonix drip. CT abdomen showed intraluminal thrombus in the mesenteric arteries with severe narrowing and noted portal venous gas and gas within the liver consistent with mesenteric ischemia. The liver shows hypoattenuation in the left hepatic lobe concerning for hepatic abscesses. After these findings were noted, discussion was had with the family who said patient is a DNR and did not want heroic measures or to undergo invasive risky surg eries. Family agreed they wanted to keep patient comfortable as the primary focus. Medical history: DM2, COPD, HTN, CVA Social history: smoker, does not use alcohol Family history: unable to obtain due to patient's confusion Patient History Family & Social History Safety & Behavioral: Feels Safe in Current Yes Environment Been Physically Hurt or No Threatened By a Person Tobacco & Substance use: Smoking Status Current every day smoker Substance Use Type does not use Meds Home Medications and Allergies Home Medications Medication Instructions Recorded Confirmed Type hydrocodone 5 mg-acetaminophen 325 1 tab PO Q4-6H PRN pain #20 tabs 10/01/20 Rx mg tablet Allergies Allergy/AdvReac Type Severity Reaction Status Date / Time No Known Drug Allergies Allergy Verified 10/18/21 00:41 Review of Systems Review of Systems Narrative: 14 systems reviewed and negative aside from what is noted in HPI Exam Vital Signs (past 8 hours): - 10/17/21 20:12 10/17/21 20:15 10/17/21 20:15 Pulse Rate 98 H 122 H Respiratory Rate 28 H 29 H Blood Pressure 95/52 L Pulse Oximetry 95 95 10/17/21 20:20 10/17/21 20:20 10/17/21 20:30 Pulse Rate 123 H 95 H Respiratory Rate 27 H 26 H Blood Pressure 92/59 L Pulse Oximetry 95 94 10/17/21 21:00 10/17/21 21:00 10/17/21 21:05 Pulse Rate 110 H Respiratory Rate Blood Pressure 112/59 L 106/56 L Pulse Oximetry 97 10/17/21 21:05 10/17/21 21:10 10/17/21 21:10 Pulse Rate 101 H 92 H Respiratory Rate 34 H 34 H Blood Pressure 108/53 L Pulse Oximetry 95 95 10/17/21 21:16 10/17/21 21:16 10/17/21 21:20 Pulse Rate 105 H Respiratory Rate 17 Blood Pressure 108/76 112/54 L Pulse Oximetry 95 10/17/21 21:20 10/17/21 21:25 10/17/21 21:25 Pulse Rate 93 H 96 H Respiratory Rate 20 24 Blood Pressure 108/59 L Pulse Oximetry 96 95 10/17/21 21:30 10/17/21 21:30 10/17/21 21:35 Pulse Rate 94 H Respiratory Rate 24 Blood Pressure 110/53 L 126/60 Pulse Oximetry 96 10/17/21 21:35 10/17/21 21:40 10/17/21 21:40 Pulse Rate 111 H 97 H Respiratory Rate 25 H 48 H Blood Pressure 127/62 Pulse Oximetry 95 96 10/17/21 21:45 10/17/21 21:45 10/17/21 21:50 Pulse Rate 109 H Respiratory Rate 23 Blood Pressure 120/82 130/63 Pulse Oximetry 95 10/17/21 21:50 10/17/21 21:55 10/17/21 21:55 Pulse Rate 101 H 100 H Respiratory Rate 41 H 28 H Blood Pressure 125/61 Pulse Oximetry 94 96 10/17/21 22:00 10/17/21 22:00 10/17/21 22:05 Pulse Rate 97 H 105 H Respiratory Rate 37 H 48 H Blood Pressure 126/58 L Pulse Oximetry 96 95 10/17/21 22:05 10/17/21 22:30 10/17/21 23:00 Pulse Rate 89 Respiratory Rate 27 H Blood Pressure 119/58 L 121/59 L Pulse Oximetry 94 10/17/21 23:00 10/17/21 23:30 10/18/21 00:00 Pulse Rate 91 H 87 Respiratory Rate 25 H 23 Blood Pressure 127/58 L Pulse Oximetry 95 95 10/18/21 00:00 10/18/21 00:30 10/18/21 01:00 Pulse Rate 96 H 111 H 92 H Respiratory Rate 22 25 H 23 Blood Pressure Pulse Oximetry 93 95 Oxygen Delivery Method Room Air Narrative Exam Narrative: GEN: elderly woman, ill appearing HEENT: dry mucous membranes, PERRL NECK: trachea midline, no JVD CV: tachycardic, irregular PULM: clear bilaterally ABD: soft, tender, decreased bowel sounds EXT: warm and well perfused with no edema NEURO: awake, but confused, not oriented Objective Labs Result Diagrams: 10/17/21 19:22 10/17/21 21:05 Labs: Laboratory Results - last 24 hr 10/17/21 10/17/21 10/17/21 13:10 13:10 13:10 WBC 21.1 H RBC 4.29 Hgb 13.0 Hct 43.6 MCV 101.7 H MCH 30.4 MCHC 29.9 L RDW 17.4 H Plt Count 305 Neut % (Auto) 92.8 H Lymph % (Auto) 3.0 L [place] % (Auto) 4.0 Eos % (Auto) 0.0 L Baso % (Auto) 0.2 Neut # (Auto) 48726 H Lymph # (Auto) 600 L [place] # (Auto) 800 Eos # (Auto) 0 Baso # (Auto) 0 Total Counted Seg Neutrophils % Band Neutrophils % Lymphocytes % (Manual) Atypical Lymphs % Monocytes % (Manual) Metamyelocytes % Neutrophils # (Manual) RBC Morphology Anisocytosis ABG pH ABG pCO2 ABG pO2 ABG HCO3 ABG Total CO2 ABG O2 Saturation ABG Base Excess FiO2 Sodium 134 L Potassium 3.3 L Chloride 86 L Carbon Dioxide 11 L BUN 27 H Creatinine 1.59 H Estimated GFR 32 L BUN/Creatinine Ratio 17.0 Glucose 1064 H* Lactate Calcium 9.5 Total Bilirubin 0.5 AST 18 ALT 15 Alkaline Phosphatase 175 H Ammonia < 9 L Total Creatine Kinase CK-MB (CK-2) CK-MB (CK-2) Rel Index Troponin I Total Protein 6.7 Albumin 3.4 L Globulin 3.3 Albumin/Globulin Ratio 1.0 Urine Color Urine Appearance Urine pH Ur Specific [place] Urine Protein Urine Glucose (UA) Urine Ketones Urine Occult Blood Urine Nitrate Urine Bilirubin Urine Urobilinogen Ur Leukocyte Esterase Urine RBC Urine WBC Ur Squamous Epith Cells Amorphous Sediment Urine Bacteria Ur Culture Indicated? U Opiates 300ng/mL cut Ur Oxycodone Screen Urine Methadone Screen Ur Barbiturates Screen U Tricyclic Antidepress Ur Phencyclidine Scrn Ur Amphetamines Screen U Methamphetamines Scrn Ur MDMA Scrn (Ecstasy) U Benzodiazepines Scrn Urine Cocaine Screen U Marijuana (THC) Screen Ketones SARS-CoV-2 (PCR) 10/17/21 10/17/21 10/17/21 15:25 16:20 16:20 WBC RBC Hgb Hct MCV MCH MCHC RDW Plt Count Neut % (Auto) Lymph % (Auto) [place] % (Auto) Eos % (Auto) Baso % (Auto) Neut # (Auto) Lymph # (Auto) [place] # (Auto) Eos # (Auto) Baso # (Auto) Total Counted Seg Neutrophils % Band Neutrophils % Lymphocytes % (Manual) Atypical Lymphs % Monocytes % (Manual) Metamyelocytes % Neutrophils # (Manual) RBC Morphology Anisocytosis ABG pH 7.32 L ABG pCO2 13.4 L* ABG pO2 116 H ABG HCO3 7 L ABG Total CO2 7 L ABG O2 Saturation 98 ABG Base Excess -19.0 L FiO2 21 Sodium Potassium Chloride Carbon Dioxide BUN Creatinine Estimated GFR BUN/Creatinine Ratio Glucose Lactate Calcium Total Bilirubin AST ALT Alkaline Phosphatase Ammonia Total Creatine Kinase CK-MB (CK-2) CK-MB (CK-2) Rel Index Troponin I Total Protein Albumin Globulin Albumin/Globulin Ratio Urine Color Yellow Urine Appearance Sl cloudy Urine pH 5.0 Ur Specific [place] 1.010 Urine Protein 1+ H Urine Glucose (UA) 3+ H Urine Ketones 1+ H Urine Occult Blood 1+ H Urine Nitrate Negative Urine Bilirubin Negative Urine Urobilinogen 0.2 Ur Leukocyte Esterase Negative Urine RBC 0-1/hpf Urine WBC 1-5/hpf Ur Squamous Epith Cells 1-5 /hpf Amorphous Sediment 1+ Urine Bacteria Many (>30) H Ur Culture Indicated? Cult not indicated U Opiates 300ng/mL cut Negative Ur Oxycodone Screen Negative Urine Methadone Screen Negative Ur Barbiturates Screen Negative U Tricyclic Antidepress Negative Ur Phencyclidine Scrn Negative Ur Amphetamines Screen Negative U Methamphetamines Scrn Negative Ur MDMA Scrn (Ecstasy) Negative U Benzodiazepines Scrn Negative Urine Cocaine Screen Negative U Marijuana (THC) Screen Negative Ketones SARS-CoV-2 (PCR) 10/17/21 10/17/21 10/17/21 16:34 16:45 16:45 WBC RBC Hgb 10.9 L Hct 36.3 MCV MCH MCHC RDW Plt Count Neut % (Auto) Lymph % (Auto) [place] % (Auto) Eos % (Auto) Baso % (Auto) Neut # (Auto) Lymph # (Auto) [place] # (Auto) Eos # (Auto) Baso # (Auto) Total Counted Seg Neutrophils % Band Neutrophils % Lymphocytes % (Manual) Atypical Lymphs % Monocytes % (Manual) Metamyelocytes % Neutrophils # (Manual) RBC Morphology Anisocytosis ABG pH ABG pCO2 ABG pO2 ABG HCO3 ABG Total CO2 ABG O2 Saturation ABG Base Excess FiO2 Sodium Potassium Chloride Carbon Dioxide BUN Creatinine Estimated GFR BUN/Creatinine Ratio Glucose Lactate Calcium Total Bilirubin AST ALT Alkaline Phosphatase Ammonia Total Creatine Kinase CK-MB (CK-2) CK-MB (CK-2) Rel Index Troponin I Total Protein Albumin Globulin Albumin/Globulin Ratio Urine Color Urine Appearance Urine pH Ur Specific [place] Urine Protein Urine Glucose (UA) Urine Ketones Urine Occult Blood Urine Nitrate Urine Bilirubin Urine Urobilinogen Ur Leukocyte Esterase Urine RBC Urine WBC Ur Squamous Epith Cells Amorphous Sediment Urine Bacteria Ur Culture Indicated? U Opiates 300ng/mL cut Ur Oxycodone Screen Urine Methadone Screen Ur Barbiturates Screen U Tricyclic Antidepress Ur Phencyclidine Scrn Ur Amphetamines Screen U Methamphetamines Scrn Ur MDMA Scrn (Ecstasy) U Benzodiazepines Scrn Urine Cocaine Screen U Marijuana (THC) Screen Ketones 18.49 H SARS-CoV-2 (PCR) Negative 10/17/21 10/17/21 10/17/21 16:45 19:22 19:22 WBC 31.1 H* RBC 3.85 L Hgb 11.5 L Hct 36.6 MCV 95.1 D MCH 29.8 MCHC 31.4 RDW 16.3 H Plt Count 303 Neut % (Auto) Not Reportable Lymph % (Auto) Not Reportable [place] % (Auto) Not Reportable Eos % (Auto) Not Reportable Baso % (Auto) Not Reportable Neut # (Auto) Lymph # (Auto) Not Reportable [place] # (Auto) Not Reportable Eos # (Auto) Baso # (Auto) Not Reportable Total Counted 100 Seg Neutrophils % 74.0 H Band Neutrophils % 12.0 H Lymphocytes % (Manual) 5.0 L Atypical Lymphs % 1.0 H Monocytes % (Manual) 7.0 Metamyelocytes % 1.0 H Neutrophils # (Manual) 00238 H RBC Morphology See below Anisocytosis 1+ H ABG pH ABG pCO2 ABG pO2 ABG HCO3 ABG Total CO2 ABG O2 Saturation ABG Base Excess FiO2 Sodium 140 Potassium 3.0 L Chloride 101 Carbon Dioxide 15 L BUN 32 H Creatinine 1.30 H Estimated GFR 41 L BUN/Creatinine Ratio 24.6 H Glucose 823 H* 582 H* Lactate Calcium 8.4 Total Bilirubin 0.4 AST 23 ALT 16 Alkaline Phosphatase 140 H Ammonia Total Creatine Kinase 22 L CK-MB (CK-2) TNP CK-MB (CK-2) Rel Index TNP Troponin I 0.018 Total Protein 6.0 L Albumin 2.9 L Globulin 3.1 Albumin/Globulin Ratio 0.9 L Urine Color Urine Appearance Urine pH Ur Specific [place] Urine Protein Urine Glucose (UA) Urine Ketones Urine Occult Blood Urine Nitrate Urine Bilirubin Urine Urobilinogen Ur Leukocyte Esterase Urine RBC Urine WBC Ur Squamous Epith Cells Amorphous Sediment Urine Bacteria Ur Culture Indicated? U Opiates 300ng/mL cut Ur Oxycodone Screen Urine Methadone Screen Ur Barbiturates Screen U Tricyclic Antidepress Ur Phencyclidine Scrn Ur Amphetamines Screen U Methamphetamines Scrn Ur MDMA Scrn (Ecstasy) U Benzodiazepines Scrn Urine Cocaine Screen U Marijuana (THC) Screen Ketones SARS-CoV-2 (PCR) 10/17/21 10/17/21 19:22 21:05 WBC RBC Hgb Hct MCV MCH MCHC RDW Plt Count Neut % (Auto) Lymph % (Auto) [place] % (Auto) Eos % (Auto) Baso % (Auto) Neut # (Auto) Lymph # (Auto) [place] # (Auto) Eos # (Auto) Baso # (Auto) Total Counted Seg Neutrophils % Band Neutrophils % Lymphocytes % (Manual) Atypical Lymphs % Monocytes % (Manual) Metamyelocytes % Neutrophils # (Manual) RBC Morphology Anisocytosis ABG pH ABG pCO2 ABG pO2 ABG HCO3 ABG Total CO2 ABG O2 Saturation ABG Base Excess FiO2 Sodium Potassium Chloride Carbon Dioxide BUN Creatinine Estimated GFR BUN/Creatinine Ratio Glucose 480 H D Lactate 4.3 H* Calcium Total Bilirubin AST ALT Alkaline Phosphatase Ammonia Total Creatine Kinase CK-MB (CK-2) CK-MB (CK-2) Rel Index Troponin I Total Protein Albumin Globulin Albumin/Globulin Ratio Urine Color Urine Appearance Urine pH Ur Specific [place] Urine Protein Urine Glucose (UA) Urine Ketones Urine Occult Blood Urine Nitrate Urine Bilirubin Urine Urobilinogen Ur Leukocyte Esterase Urine RBC Urine WBC Ur Squamous Epith Cells Amorphous Sediment Urine Bacteria Ur Culture Indicated? U Opiates 300ng/mL cut Ur Oxycodone Screen Urine Methadone Screen Ur Barbiturates Screen U Tricyclic Antidepress Ur Phencyclidine Scrn Ur Amphetamines Screen U Methamphetamines Scrn Ur MDMA Scrn (Ecstasy) U Benzodiazepines Scrn Urine Cocaine Screen U Marijuana (THC) Screen Ketones SARS-CoV-2 (PCR) Assessment & Plan Assessment & Plan narrative: 1. Acute mesenteric ischemia 2. Severe sepsis 3. Hepatic abscess 4. Atrial fibrillation with RVR 5. DKA 6. CONRAD 7. Hypokalemia Ms. Condon was admitted with severe sepsis from acute mesenteric ischemia. She was initially resuscitated in the ED with IV fluid and IV antibiotics. She was also in DKA and started on an insulin drip. However, she had very poor prognosis given her hepatic and splenic infarctions and her evidence of sepsis from hepatic infection. Family was able to bring in her goals of care which clearly stated she would not want life prolonging measures. They wanted to focus on keeping patient's comfort a priority. Medications were ordered to help keep her comfortable and she was admitted to the hospital. Time Spent With Patient Critical Care time: I spent a total of [] minutes of critical care time on this patient's care today; this time is exclusive of procedural time. Quality MIPS - Admit I confirm the patient?s Advance Care Plan is present, Code status is documented, Surrogate decision maker is in patient?s record [If Yes, STOP here]: Yes
[2021-10-17 23:03] LABS: Reflexed Lactate in 2 Hours Y
[2021-10-18] VITALS (7 sets, daily range): BP systolic 104–130; BP diastolic 53–64; PULSE 92–116; RESP 14–25; TEMP 36.1–36.4; O2SAT 91–95
[2021-10-18] MEDS: SODIUM CHLORIDE 0.9% 1,000 ML 150 ML IV (05:35)
[2021-10-18] MEDS: NYSTATIN/TRIAMCIN CREAM 15 GM 1 APPLIC TOP ×2 (08:35→20:50)
[2021-10-18] MEDS: MORPHINE 2 MG/ML INJ 4 MG IV ×4 (08:37→23:15)
[2021-10-18] MEDS: SODIUM CHLORIDE 0.9% 1,000 ML 50 ML IV ×2 (10:30→18:50)
--- NOTE | 2021-10-18 11:25 | CM.DANOTE ---
DCP Note: Payor: Medicare PCP: Unknown Pt is an 81 y.o. F who presented to the ED with 4 days of emesis and decreased activity for 7 days. Pt reported abd. pain as well. Pt was admitted to the floor with severe sepsis from acute mesenteric ischemia. Pt also was in DKA and was started on an insulin drip. Pt has a poor prognosis per MD and her family has provided her goal of care that states she would not want life prolonging measures. Pt family wants to keep pt comfortable at this time and as their main priority. DCP met with daughter this morning. Pt daughter states that she is aware that the goal of care is to keep her mom as comfortable as possible. DCP mentioned the possibility of hospice. Pt daughter states that her and her other sister have talked about that going that route and would like to start the process. Daughter would like to bring her home on hospice once everything is set up. DCP will send referral to the Hospice of the to get process started. P: Once pt is cleared by MD, pt will go home on Hospice. DCP sending referral today to get process started. Mela Justice RN/ROMARIOP Discharge Planning/Care Management CM Discharge Assessment Start: 10/18/21 11:21 Freq: Status: Active Protocol: Document 10/18/21 11:21 MEET (Rec: 10/18/21 11:25 MEET [id number]) Discharge Planning Assessment Assigned [employer] Mela Justice RN/ROMARIOP Advance Directives? No History Provided By Family Member Prior Living Arrangements House Household Members children Type of transporation used prior to Relies on Others admit Independent with ADL's Yes Is patient alert and oriented? AxO1 Caregiver for Another No DME Already Rented / Owned Elevated Toilet Seat,FWW / Walker Discharge Plan Hospice Referrals Initiated Other Additional Comment Hospice of referral. Review Status In Process Please Provide Date Initial DC 10/18/21 Assessment Was Performed Next Review Type Continued Stay Review
--- NOTE | 2021-10-18 11:27 | CM.DPNOTE ---
Faxed referral to [facility] per Mela. Rah mccabe. Kendra Anne CM Assist.
--- NOTE | 2021-10-18 16:46 | P.PN_ITS ---
Subjective Subjective Interval history: Hospitalist visit follow-up. No new concerns by patient or nursing. Ms. Condon is an 81W with PMH DM2, COPD, HTN, CVA, who was brought into the emergency department with abdominal pain, nausea, and vomiting.?Patient was unable to provide history. Per daughter she has chronic abdominal issues. She over the last two weeks developed significant abdominal pain and decreased appetite. Over the last three days she developed nausea and stopped eating almost entirely. She initially had clear vomit and then dark vomit. Based on initial assessment in the ER the on discussion with the family the patient has been made DN with no intubation and comfort measures only. Hospice consultation has been ordered. Exam Vital Signs (past 8 hours): Oxygen Delivery Method Room Air Oxygen Flow Rate 0 Narrative Exam Narrative: Patient resting comfortably. Able to arouse and is oriented to person. HEENT: Pupils appear to be equal and reactive. Extraocular movements normal. Cardiovascular: Heart sounds S1 and S2 Respiratory: Breathing quietly. Adequate air entry. Gastrointestinal: Abdomen is soft. Bowel sounds present Musculoskeletal: Cachectic extremities. Neuro: Appears to have normal sensation of extremities. Objective Labs Result Diagrams: 10/17/21 19:22 10/17/21 21:05 Labs: Laboratory Results - last 24 hr 10/17/21 10/17/21 10/17/21 16:20 16:20 16:34 WBC RBC Hgb Hct MCV MCH MCHC RDW Plt Count Neut % (Auto) Lymph % (Auto) [place] % (Auto) Eos % (Auto) Baso % (Auto) Lymph # (Auto) [place] # (Auto) Baso # (Auto) Total Counted Seg Neutrophils % Band Neutrophils % Lymphocytes % (Manual) Atypical Lymphs % Monocytes % (Manual) Metamyelocytes % Neutrophils # (Manual) RBC Morphology Anisocytosis Sodium Potassium Chloride Carbon Dioxide BUN Creatinine Estimated GFR BUN/Creatinine Ratio Glucose Lactate Calcium Total Bilirubin AST ALT Alkaline Phosphatase Total Creatine Kinase CK-MB (CK-2) CK-MB (CK-2) Rel Index Troponin I Total Protein Albumin Globulin Albumin/Globulin Ratio Urine Color Yellow Urine Appearance Sl cloudy Urine pH 5.0 Ur Specific [place] 1.010 Urine Protein 1+ H Urine Glucose (UA) 3+ H Urine Ketones 1+ H Urine Occult Blood 1+ H Urine Nitrate Negative Urine Bilirubin Negative Urine Urobilinogen 0.2 Ur Leukocyte Esterase Negative Urine RBC 0-1/hpf Urine WBC 1-5/hpf Ur Squamous Epith Cells 1-5 /hpf Amorphous Sediment 1+ Urine Bacteria Many (>30) H Ur Culture Indicated? Cult not indicated U Opiates 300ng/mL cut Negative Ur Oxycodone Screen Negative Urine Methadone Screen Negative Ur Barbiturates Screen Negative U Tricyclic Antidepress Negative Ur Phencyclidine Scrn Negative Ur Amphetamines Screen Negative U Methamphetamines Scrn Negative Ur MDMA Scrn (Ecstasy) Negative U Benzodiazepines Scrn Negative Urine Cocaine Screen Negative U Marijuana (THC) Screen Negative Ketones SARS-CoV-2 (PCR) Negative 10/17/21 10/17/21 10/17/21 16:45 16:45 16:45 WBC RBC Hgb 10.9 L Hct 36.3 MCV MCH MCHC RDW Plt Count Neut % (Auto) Lymph % (Auto) [place] % (Auto) Eos % (Auto) Baso % (Auto) Lymph # (Auto) [place] # (Auto) Baso # (Auto) Total Counted Seg Neutrophils % Band Neutrophils % Lymphocytes % (Manual) Atypical Lymphs % Monocytes % (Manual) Metamyelocytes % Neutrophils # (Manual) RBC Morphology Anisocytosis Sodium Potassium Chloride Carbon Dioxide BUN Creatinine Estimated GFR BUN/Creatinine Ratio Glucose 823 H* Lactate Calcium Total Bilirubin AST ALT Alkaline Phosphatase Total Creatine Kinase CK-MB (CK-2) CK-MB (CK-2) Rel Index Troponin I Total Protein Albumin Globulin Albumin/Globulin Ratio Urine Color Urine Appearance Urine pH Ur Specific [place] Urine Protein Urine Glucose (UA) Urine Ketones Urine Occult Blood Urine Nitrate Urine Bilirubin Urine Urobilinogen Ur Leukocyte Esterase Urine RBC Urine WBC Ur Squamous Epith Cells Amorphous Sediment Urine Bacteria Ur Culture Indicated? U Opiates 300ng/mL cut Ur Oxycodone Screen Urine Methadone Screen Ur Barbiturates Screen U Tricyclic Antidepress Ur Phencyclidine Scrn Ur Amphetamines Screen U Methamphetamines Scrn Ur MDMA Scrn (Ecstasy) U Benzodiazepines Scrn Urine Cocaine Screen U Marijuana (THC) Screen Ketones 18.49 H SARS-CoV-2 (PCR) 10/17/21 10/17/21 10/17/21 19:22 19:22 19:22 WBC 31.1 H* RBC 3.85 L Hgb 11.5 L Hct 36.6 MCV 95.1 D MCH 29.8 MCHC 31.4 RDW 16.3 H Plt Count 303 Neut % (Auto) Not Reportable Lymph % (Auto) Not Reportable [place] % (Auto) Not Reportable Eos % (Auto) Not Reportable Baso % (Auto) Not Reportable Lymph # (Auto) Not Reportable [place] # (Auto) Not Reportable Baso # (Auto) Not Reportable Total Counted 100 Seg Neutrophils % 74.0 H Band Neutrophils % 12.0 H Lymphocytes % (Manual) 5.0 L Atypical Lymphs % 1.0 H Monocytes % (Manual) 7.0 Metamyelocytes % 1.0 H Neutrophils # (Manual) 03113 H RBC Morphology See below Anisocytosis 1+ H Sodium 140 Potassium 3.0 L Chloride 101 Carbon Dioxide 15 L BUN 32 H Creatinine 1.30 H Estimated GFR 41 L BUN/Creatinine Ratio 24.6 H Glucose 582 H* Lactate 4.3 H* Calcium 8.4 Total Bilirubin 0.4 AST 23 ALT 16 Alkaline Phosphatase 140 H Total Creatine Kinase 22 L CK-MB (CK-2) TNP CK-MB (CK-2) Rel Index TNP Troponin I 0.018 Total Protein 6.0 L Albumin 2.9 L Globulin 3.1 Albumin/Globulin Ratio 0.9 L Urine Color Urine Appearance Urine pH Ur Specific [place] Urine Protein Urine Glucose (UA) Urine Ketones Urine Occult Blood Urine Nitrate Urine Bilirubin Urine Urobilinogen Ur Leukocyte Esterase Urine RBC Urine WBC Ur Squamous Epith Cells Amorphous Sediment Urine Bacteria Ur Culture Indicated? U Opiates 300ng/mL cut Ur Oxycodone Screen Urine Methadone Screen Ur Barbiturates Screen U Tricyclic Antidepress Ur Phencyclidine Scrn Ur Amphetamines Screen U Methamphetamines Scrn Ur MDMA Scrn (Ecstasy) U Benzodiazepines Scrn Urine Cocaine Screen U Marijuana (THC) Screen Ketones SARS-CoV-2 (PCR) 10/17/21 21:05 WBC RBC Hgb Hct MCV MCH MCHC RDW Plt Count Neut % (Auto) Lymph % (Auto) [place] % (Auto) Eos % (Auto) Baso % (Auto) Lymph # (Auto) [place] # (Auto) Baso # (Auto) Total Counted Seg Neutrophils % Band Neutrophils % Lymphocytes % (Manual) Atypical Lymphs % Monocytes % (Manual) Metamyelocytes % Neutrophils # (Manual) RBC Morphology Anisocytosis Sodium Potassium Chloride Carbon Dioxide BUN Creatinine Estimated GFR BUN/Creatinine Ratio Glucose 480 H D Lactate Calcium Total Bilirubin AST ALT Alkaline Phosphatase Total Creatine Kinase CK-MB (CK-2) CK-MB (CK-2) Rel Index Troponin I Total Protein Albumin Globulin Albumin/Globulin Ratio Urine Color Urine Appearance Urine pH Ur Specific [place] Urine Protein Urine Glucose (UA) Urine Ketones Urine Occult Blood Urine Nitrate Urine Bilirubin Urine Urobilinogen Ur Leukocyte Esterase Urine RBC Urine WBC Ur Squamous Epith Cells Amorphous Sediment Urine Bacteria Ur Culture Indicated? U Opiates 300ng/mL cut Ur Oxycodone Screen Urine Methadone Screen Ur Barbiturates Screen U Tricyclic Antidepress Ur Phencyclidine Scrn Ur Amphetamines Screen U Methamphetamines Scrn Ur MDMA Scrn (Ecstasy) U Benzodiazepines Scrn Urine Cocaine Screen U Marijuana (THC) Screen Ketones SARS-CoV-2 (PCR) PFS Social History household members: children Smoking Status: Current every day smoker additional social history: Patient lives with her daughter. She is an active smoker. She presently smokes 1 pack per day but was a 2-3 pack per day smoker for 60 years. No alcohol use. Assessment & Plan Assessment & Plan narrative: Patient on comfort measures only for the following: Acute mesenteric ischemia Severe sepsis Hepatic abscess Atrial fibrillation with RVR DKA CONRAD Hypokalemia No labs taken today. Comfort measures only. Time Spent With Patient Critical Care time: I spent a total of [] minutes of critical care time on this patient's care today ; this time is exclusive of procedural time.
[2021-10-18] MEDS: LORazepam 2 MG/ML INJ 1 MG IV (23:11)
[2021-10-19 07:00] VITALS: O2SAT 93
[2021-10-19 08:00] VITALS: BP 105/47; PULSE 112; RESP 16; TEMP 36.3; O2SAT 93
[2021-10-19] MEDS: NYSTATIN/TRIAMCIN CREAM 15 GM 1 APPLIC TOP ×2 (08:09→21:58)
--- NOTE | 2021-10-19 10:17 | PM.PN.1 ---
Subjective Subjective Interval history: Hospitalist visit follow-up. On presentation patient was an 81W with PMH DM2, COPD, HTN, CVA, who was brought into the emergency department with abdominal pain, nausea, and vomiting.?Patient was unable to provide history. Per daughter she has chronic abdominal issues. She over the last two weeks developed significant abdominal pain and decreased appetite. Over the last three days she developed nausea and stopped eating almost entirely. She initially had clear vomit and then dark vomit. Patient currently is comfort care only. Currently no new complaints by Nursing or patient. Exam Vital Signs (past 8 hours): - 10/19/21 08:00 Temperature 97.4 F L Pulse Rate 112 H Respiratory Rate 16 Blood Pressure 105/47 L Pulse Oximetry 93 Oxygen Flow Rate 0 Oxygen Delivery Method Room Air Oxygen Flow Rate 0 Narrative Exam Narrative: Patient resting comfortably.? Unable to arouse HEENT:? Pupils appear to be equal and reactive.? Cardiovascular:? Heart sounds S1 and S2 Respiratory:? Breathing quietly.? Adequate air entry. Gastrointestinal:? Abdomen is soft.? Bowel sounds present Musculoskeletal:? Cachectic extremities. Neuro:? Appears to have normal sensation of extremities. Objective Labs Result Diagrams: 10/17/21 19:22 10/17/21 21:05 [facility] Social History household members: children Smoking Status: Current every day smoker additional social history: Patient lives with her daughter. She is an active smoker. She presently smokes 1 pack per day but was a 2-3 pack per day smoker for 60 years. No alcohol use. Assessment & Plan Assessment & Plan narrative: Patient on comfort measures only for the following: Acute mesenteric ischemia Severe sepsis Hepatic abscess ?Atrial fibrillation with RVR ?DKA ?CONRDA Hypokalemia Time Spent With Patient Critical Care time: I spent a total of [] minutes of critical care time on this patient's care today; this time is exclusive of procedural time.
--- NOTE | 2021-10-19 15:31 | CM.DPC ---
DCP Cont: Spoke with [facility] today and they verbalized that they would not be able to assess pt until sometime next week. DCP spoke with the daughter and she is concerned that if they brought her home and hospice was not able to come until next week, she would not be able to provide the care. DCP and daughter talked about the possibility of a SNF for comfort care and daughter states she wants to talk to Hospice first. DCP to make appropriate referrals to SNF and follow up with daughter once she talks to hospice. When daughter called today, she was unable to get in contact with them. I contacted Cynthia at [facility] to inquire and she will look into patient case. Mela Justice RN/ROMARIOP
[2021-10-19] MEDS: SODIUM CHLORIDE 0.9% 1,000 ML 50 ML IV (16:20)
[2021-10-19] MEDS: MORPHINE 2 MG/ML INJ 4 MG IV (16:27)
[2021-10-20] MEDS: SCOPOLAMINE 1 PATCH TOP (01:25)
[2021-10-20] MEDS: LORazepam 2 MG/ML INJ 1 MG IV ×2 (01:25→09:09)
[2021-10-20] MEDS: MORPHINE 2 MG/ML INJ 4 MG IV (03:57)
[2021-10-20 08:00] VITALS: BP 126/62; PULSE 130; RESP 13; TEMP 37.1; O2SAT 90
[2021-10-20 08:19] VITALS: O2SAT 95
[2021-10-20] MEDS: NYSTATIN/TRIAMCIN CREAM 15 GM 1 APPLIC TOP ×2 (09:05→20:54)
[2021-10-20] MEDS: SODIUM CHLORIDE 0.9% 1,000 ML 50 ML IV (10:33)
--- NOTE | 2021-10-20 12:51 | CM.DPC ---
Addendum entered by CARA Cabrera 10/20/21 15:14: ADD: Call from Betsy at [facility] stating Info Visit completed and they can open the pt to service tomorrow 10/21/21 between [id number] and just need d/c summary and copy of med list faxed at discharge. SW met bedside with Dtr and MD and both completed and signed the provided POLST for Comfort Measures only and all in agreement with d/c tomorrow around 0900 via BLS to home. SW confirmed home address and 6 steps to enter and Dtr plans to stay home in the morning to prepare for pt's arrival. EVE Gardner kindly scheduled BLS transport with [facility] for 0900 10/21/21 to home. BLS form, copy of POLST, facesheet and MD prog note attached and on pt chart for [facility] staff. BF Addendum entered by CARA Cabrera 10/20/21 14:33: ADD: SW met bedside with pt (non-responsive) and Gera Gardner and Dtr confirms she has her Hospice Info Visit with Betsy at [facility] in 20 min via phone. Dtr states her preference is to get pt home with Hospice rather than a facility as they have a large family who want to be present with pt. SW discussed pt's care needs and Dtr confirms between herself, her , her sister Dolores, and other family members and pt's minimal care needs, family feels comfortable managing her at home at this time if Hospice is on-board. Dtlan Gardner feels more comfortable with pt discharging home tomorrow when [facility] can open pt to service and aware that pt will need to transport via BLS and could be some out of pocket expense but Dtr hopeful between Medicare and Medicaid it will be covered but pt cannot safely transport any other way. BLS form completed in anticipation of [facility] at d/c tomorrow. Plan: SW to follow after 1430 Hospice Info Visit with Gera Gardner towards confirming time that [facility] can open pt to service tomorrow and to set up BLS transport for discharge. CARA Cabrera Original Note: DCP Comfort Care Cont: Per MD, pt continues to appear to be actively dying and imminent but unclear of timeline at this time. SW called [facility] and confirmed they spoke briefly to Gera Gardner yesterday and have scheduled Info Visit today 10/20/21 at 1430 to confirm if Dtr wants to sign consents and move forward with Hospice and [facility] just had an opening become available on their schedule for tomorrow 10/21/21 and placed pt tentatively in that spot. [facility] requesting to wait until Info Visit to be completed this afternoon to determine if they can move forward with scheduling DME delivery and open intake time for tomorrow. PANDA updated MD, er manager, and RN on possible d/c tomorrow with Hospice if pt remains stable and does not overnight. SW received a call from [facility] admissions as they were reviewing as possible placement for pt on Comfort Care if needed inquiring if pt has also received the COVID booster as only showing in [facility] system of COVID vaccinated but no boosters. SW called pt's DPOA Dtr Kendra and left msg requesting call back to gather additional information as Dtr not currently bedside and per RN pt's breathing has changed and unclear if she may today or not. Plan: PANDA to follow closely for return call from Dtr re: d/c plans if pt remains stable overnight for home with [facility] to open tomorrow vs [facility] on Comfort Measures. CARA Cabrera
--- NOTE | 2021-10-20 15:10 | PM.PN.1 ---
Subjective Subjective Date Patient Seen: 10/20/21 Interval history: Hospitalist follow-up visit. Patient remains comfort care only. Hospice has been consulted the patient will be discharged tomorrow under hospice care at home. Daughter is present at my visit. Patient resting comfortably. No new nursing concerns. Exam Vital Signs (past 8 hours): - 10/20/21 08:19 10/20/21 08:19 10/20/21 08:00 Temperature 98.7 F Pulse Rate 130 H Respiratory Rate 13 Blood Pressure 126/62 Pulse Oximetry 95 90 L Oxygen Delivery Method Room Air Room Air Oxygen Flow Rate 0 Oxygen Delivery Method Room Air Oxygen Flow Rate 0 Narrative Exam Narrative: Patient not alert. Sleeping quietly. Not arousable. HEENT: Eyes are closed. Patient was not disturbed. Trachea appears midline. Respiratory: Breathing comfortably. No lag no breathing. Appears to have adequate air entry. Extremities: Response to pain. Appears to have normal size sensation of the extremities. Objective Labs Result Diagrams: 10/17/21 19:22 10/17/21 21:05 Labs: Laboratory Results - last 24 hr 10/17/21 19:22 Smear Path Review ... PFS Social History household members: children Smoking Status: Current every day smoker additional social history: Patient lives with her daughter. She is an active smoker. She presently smokes 1 pack per day but was a 2-3 pack per day smoker for 60 years. No alcohol use. Assessment & Plan Assessment & Plan narrative: Patient has been seen by hospice and will be discharged home tomorrow for hospice care at home. While in the hospital there has been findings showing on CT of the abdomen there was iIntraluminal thrombus with calcified plaque in the proximal celiac and superior mesenteric arteries with associated severe narrowing.? Portal venous gas demonstrated within the mesenteric veins, SMV, and within the liver.? Multiple segments of small bowel wall thickening are demonstrated.? The constellation of findings are consistent with mesenteric ischemia. This mesenteric ischemia. The liver shows hypoattenuation in the left hepatic lobe concerning for hepatic abscesses. On presentation there was a concern for sepsis due to hemodynamic instability and white blood count of 21 progressing to 31. The most likely cause of this concern for sepsis is the mesenteric ischemia that has been documented and the concern for hepatic abscesses that has been documented. Patient on comfort measures only for the following: Acute mesenteric ischemia Severe sepsis Hepatic abscess ?Atrial fibrillation with RVR ?DKA ?CONRAD Hypokalemia ? Time Spent With Patient Critical Care time: I spent a total of [] minutes of critical care time on this patient's care today; this time is exclusive of procedural time.
--- NOTE | 2021-10-20 15:17 | CM.DPNOTE ---
Called [facility] and spoke with Osmar for 0900 pickup for , 10/21 per Mora. Told Osmar there was a Garcia; [address] at the residence and we do have the Polst form. Kendra Anne CM Assist.
[2021-10-21] MEDS: MORPHINE 2 MG/ML INJ 4 MG IV ×2 (01:07→03:38)
[2021-10-21] MEDS: SCOPOLAMINE 1 PATCH TOP (03:40)
--- NOTE | 2021-10-21 04:12 | PC.NURSE ---
Addendum entered by Kimi Zavaleta R.N. 10/21/21 06:39: Attempted to contact hermelinda Saba at 06:40 via phone [ ]. No response- left message. Informed her over message that day shift would be taking over soon and requested she call back as soon as she was able. Addendum entered by Kimi Zavaleta R.N. 10/21/21 04:32: Attempted to contact hermelinda Saba at 04:34 via phone [ ]. No response- left message. Will continue to attempt. Original Note: At approx 0405, this RN entered room to check on patient 30 min post medication administration for a FLACC >2 w/ increased respiratory effort. Pt noted to have decreased and shallow respirations, last breath at 0407. No pulse palpated or auscultated, no apparent or audible breathing noted, pupils fixed and non-reactive. Contacted SARAH Lewis and Coordinator Smita. Attempted to contact hermelinda Saba at 04:11 via phone [ ]. No response- left message. Will continue to attempt.
--- NOTE | 2021-10-21 06:33 | PM.DDS.1 ---
Discharge Summary History of Illness Chief Complaint: Nausea/Vomiting/Diarrhea Narrative: Patient remains comfort care only.? Hospice has been consulted the patient will be discharged tomorrow under hospice care at home.? Daughter is present at my visit.? Patient resting comfortably.? No new nursing concerns. Hospital Course Date of Admission: 10/17/21 23:04 Date of : 10/21/21 Consults: 10/18/21 02:16 Consult to Discharge Planning Routine Comment: Consult to Hospice Referral Urgent Comment: 10/18/21 16:45 Consult to Hospice Referral Routine Comment: Discharge Diagnosis: Hospital Course: Anne Marie Condon at 4:07 a.m. on 10/21/2021. Objective Labs Result Diagrams: 10/17/21 19:22 10/17/21 21:05 Labs: Laboratory Results - last 24 hr 10/17/21 19:22 Smear Path Review ...
--- NOTE | 2021-10-21 09:49 | PC.NURSE ---
Day shift: Radha mary removed per Daughters request this AM. Pt has a ring (gold in color) on her left hand and this is to remain in place and is not to be removed per Daughters request. Transport/ arrangements in progress. Yellow rain placed around Pt are to remain with Pt as well per Daughter. Daughter has been in to see Taiwo (funnel coater) has been helping/supportive with this. Daughter is no longer here as this note is written.
--- NOTE | 2021-10-21 13:17 | PC.NURSE ---
Day shift: Left unit with [facility] home person at approx 1315. Special paperwork signed and in the chart. All belongings in room are with Aram. Gold colored ring remains on left hand.
== END 2021-10-21 04:10 | disposition expired | DRG 871 ==
LOC: ED 21:31 → AC 23:05
PROVIDERS: Family Medicine; Admitting Provider Internal Medicine; Emergency Provider Emergency Medicine; Referring Provider Family Medicine Addiction Medicine; Visit Provider Internal Medicine
DX: A41.9 Sepsis, unspecified organism (principal); K75.0 Abscess of liver; K55.052 Diffuse acute (reversible) ischemia of intestine, part unspecified; E11.10 Type 2 diabetes mellitus with ketoacidosis without coma; G93.41 Metabolic encephalopathy; K55.019 Acute (reversible) ischemia of small intestine, extent unspecified; N17.9 Acute kidney failure, unspecified; I74.8 Embolism and thrombosis of other arteries; R65.20 Severe sepsis without septic shock; E87.6 Hypokalemia; I48.91 Unspecified atrial fibrillation; I10 Essential (primary) hypertension; F17.210 Nicotine dependence, cigarettes, uncomplicated; Z79.84 Long term (current) use of oral hypoglycemic drugs; Z66 Do not resuscitate; Z51.5 Encounter for palliative care
CPT/HCPCS: 36415; 36600; 71045; 71260; 74177; 80053; 80305; 81001; 82009; 82140; 82550; 82805; 82947; 82962; 83605; 84484; 85007; 85014; 85018; 85025; 87040; 87635; 93005; 96361; 96365; 96366; 96367; 96368; 96375; 99284; C9803; C9113; J1815; J2060; J2270; J2405; J2543; J2765; Q9967